=== PATIENT | female | born 1945 | race Caucasian/White ===

== ENCOUNTER 2022-04-25 12:42 | Outpatient (CLI) | payer MEDICAID, SELFPAY ==
[2022-04-25 13:17] LABS: Basophils % 0.5 %; Eosinophils # 0.3 10^3/uL (0.0-0.8); Eosinophils % 4.2 %; Hematocrit 37.4 % (37.0-47.0); Hemoglobin 11.6 g/dL (11.5-15.3); Lymphocytes # 2.3 10^3/uL (0.8-4.8); Lymphocytes % 29.5 %; Mean Corpuscular Hemoglobin 27.4 pg (28.0-34.0); Mean Corpuscular Volume 88.2 fl (81-99); Mean Platelet Volume 11.1 fL (7.4-10.4); Monocytes # 0.6 10^3/uL (0.2-0.9); Monocytes % 7.2 %; Neutrophils # 4.45 10^3/uL (1.8-7.7); Neutrophils % 58.3 %; Nucleated Red Blood Cells % 0 %; Platelet Count 244 10^3/cmm (130-400); Red Blood Count 4.24 10^6/uL (4.1-5.3); Red Cell Distribution Width 14.5 % (12.1-15.1); White Blood Count 7.6 10^3/uL (4.0-10.0)
[2022-04-25 13:36] LABS: Estmated Average Glucose 192; Hemoglobin A1C 8.3 % (4.0-6.0)
[2022-04-25 13:44] LABS: Alanine Aminotransferase 18 U/L (0-33); Albumin Level 4.1 g/dL (3.5-5.2); Alkaline Phosphatase 97 U/L (35-105); Anion Gap 15.8 (5-19); Aspartate Amino Transferase 21 U/L (0-32); Blood Urea Nitrogen 24 mg/dL (8-23); Calcium 9.9 mg/dL (8.5-10.5); Carbon Dioxide 30 mmol/L (22-29); Chloride 98 mmol/L (98-107); Globulin 2.1 g/dL (1.3-4.6); Glucose 122 mg/dL (65-115); Osmolality Calculated 293 mOsm/kg (285-295); Potassium 4.8 mmol/L (3.5-5.1); Sodium 139 mmol/L (136-145); Total Bilirubin 0.3 mg/dL (0.15-1.2); Total Protein 6.2 g/dL (6.6-8.7)
== END 2022-04-25 12:43 | disposition home or self-care (01) ==
LOC: LAB 12:45
PROVIDERS: PCP Family Medicine; Visit Provider Nurse Practitioner Family
DX: E11.22 Type 2 diabetes mellitus with diabetic chronic kidney disease (principal); N18.4 Chronic kidney disease, stage 4 (severe)
CPT/HCPCS: 80053; 83036; 85025

== ENCOUNTER 2022-07-25 13:50 | Outpatient (CLI) | payer MEDICAID, SELFPAY ==
[2022-07-25 14:47] LABS: Basophils # 0.1 10^3/uL (0.0-0.1); Basophils % 0.7 %; Eosinophils # 0.3 10^3/uL (0.0-0.8); Eosinophils % 3.7 %; Hematocrit 35.3 % (37.0-47.0); Hemoglobin 11.1 g/dL (11.5-15.3); Lymphocytes # 1.8 10^3/uL (0.8-4.8); Lymphocytes % 23.8 %; Mean Corpuscular HGB Conc 31.4 g/dL (30.0-36.0); Mean Corpuscular Hemoglobin 27.3 pg (28.0-34.0); Mean Corpuscular Volume 86.9 fl (81-99); Monocytes # 0.5 10^3/uL (0.2-0.9); Monocytes % 7.3 %; Neutrophils # 4.74 10^3/uL (1.8-7.7); Neutrophils % 64.2 %; Nucleated Red Blood Cells % 0 %; Platelet Count 243 10^3/cmm (130-400); Red Blood Count 4.06 10^6/uL (4.1-5.3); Red Cell Distribution Width 14.3 % (12.1-15.1); White Blood Count 7.4 10^3/uL (4.0-10.0)
[2022-07-25 15:13] LABS: Alanine Aminotransferase 31 U/L (0-33); Albumin Level 4.1 g/dL (3.5-5.2); Alkaline Phosphatase 87 U/L (35-105); Anion Gap 17.3 (5-19); Aspartate Amino Transferase 30 U/L (0-32); Blood Urea Nitrogen 24 mg/dL (8-23); Calcium 9.5 mg/dL (8.5-10.5); Carbon Dioxide 25 mmol/L (22-29); Chloride 102 mmol/L (98-107); Globulin 2.2 g/dL (1.3-4.6); Glucose 164 mg/dL (65-115); Osmolality Calculated 298 mOsm/kg (285-295); Potassium 4.3 mmol/L (3.5-5.1); Sodium 140 mmol/L (136-145); Total Bilirubin 0.2 mg/dL (0.15-1.2); Total Protein 6.3 g/dL (6.6-8.7)
[2022-07-25 15:15] LABS: Estmated Average Glucose 212
== END 2022-07-25 13:51 | disposition home or self-care (01) ==
LOC: LAB 13:55
PROVIDERS: PCP Family Medicine; Visit Provider Family Medicine
DX: E11.22 Type 2 diabetes mellitus with diabetic chronic kidney disease (principal); N18.4 Chronic kidney disease, stage 4 (severe)
CPT/HCPCS: 80053; 83036; 85025

== ENCOUNTER 2022-10-24 12:14 | Outpatient (CLI) | payer MEDICAID, SELFPAY ==
[2022-10-24 12:46] LABS: Basophils # 0.1 10^3/uL (0.0-0.1); Basophils % 0.7 %; Eosinophils # 0.2 10^3/uL (0.0-0.8); Eosinophils % 3.2 %; Hematocrit 37.1 % (37.0-47.0); Hemoglobin 11.3 g/dL (11.5-15.3); Lymphocytes # 1.7 10^3/uL (0.8-4.8); Mean Corpuscular HGB Conc 30.5 g/dL (30.0-36.0); Mean Corpuscular Hemoglobin 25.9 pg (28.0-34.0); Mean Corpuscular Volume 85.1 fl (81-99); Mean Platelet Volume 10.9 fL (7.4-10.4); Monocytes # 0.5 10^3/uL (0.2-0.9); Monocytes % 7.5 %; Neutrophils # 4.29 10^3/uL (1.8-7.7); Neutrophils % 63.2 %; Nucleated Red Blood Cells % 0 %; Platelet Count 259 10^3/cmm (130-400); Red Blood Count 4.36 10^6/uL (4.1-5.3); Red Cell Distribution Width 14.6 % (12.1-15.1); White Blood Count 6.8 10^3/uL (4.0-10.0)
[2022-10-24 13:04] LABS: Alanine Aminotransferase 22 U/L (0-33); Albumin Level 3.9 g/dL (3.5-5.2); Alkaline Phosphatase 81 U/L (35-105); Aspartate Amino Transferase 27 U/L (0-32); Blood Urea Nitrogen 20 mg/dL (8-23); Calcium 8.9 mg/dL (8.5-10.5); Carbon Dioxide 23 mmol/L (22-29); Chloride 98 mmol/L (98-107); Glucose 271 mg/dL (65-115); Osmolality Calculated 292 mOsm/kg (285-295); Sodium 135 mmol/L (136-145); Total Bilirubin 0.3 mg/dL (0.15-1.2); Total Protein 5.9 g/dL (6.6-8.7)
[2022-10-24 13:09] LABS: Anion Gap 19.4 (5-19); Potassium 5.4 mmol/L (3.5-5.1)
[2022-10-24 13:44] LABS: Estmated Average Glucose 266; Hemoglobin A1C 10.9 % (4.0-6.0)
== END 2022-10-24 12:15 | disposition home or self-care (01) ==
LOC: LAB 12:15
PROVIDERS: PCP Family Medicine; Visit Provider Family Medicine
DX: E11.22 Type 2 diabetes mellitus with diabetic chronic kidney disease (principal); N18.4 Chronic kidney disease, stage 4 (severe); I50.22 Chronic systolic (congestive) heart failure
CPT/HCPCS: 80053; 83036; 85025

== ENCOUNTER 2023-11-28 06:22 | Emergency (ER) | payer MEDICARE, MEDICAID, SELFPAY ==
[2023-11-28] VITALS (8 sets, daily range): BP systolic 115–195; BP diastolic 64–95; PULSE 72–83; RESP 18; TEMP 37.1; O2SAT 97–99; BMI 35.4
--- NOTE | 2023-11-28 06:27 | XRR_ITS ---
PROCEDURE INFORMATION: Exam: XR Chest Exam date and time: 11/28/2023 7:14 AM Age: 78 years old Clinical indication: Cough and dyspnea; Additional info: Dyspnea/cough TECHNIQUE: Imaging protocol: Radiologic exam of the chest. Views: 1 view. COMPARISON: CR XR chest 1V [id number] 11/13/2018 9:54 PM FINDINGS: Lungs: Unremarkable. No consolidation. Pleural spaces: Unremarkable. No pleural effusion. No pneumothorax. Heart/Mediastinum: Unremarkable. No cardiomegaly. Bones/joints: Unremarkable. XR/XR chest 1V portable [id number] IMPRESSION: No acute findings.
--- NOTE | 2023-11-28 06:33 | ECG_ITS ---
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 Measurements Intervals [place] Rate: 76 P: 0 [place]: 0 QRS: 23 QRSD: 76 T: 49 QT: 377 QTc: 424 Interpretive Statements ATRIAL FIBRILLATION NONSPECIFIC ST & T-WAVE ABNORMALITY Compared to ECG 01/21/2019 23:27:13 T-wave abnormality now present Sinus rhythm no longer present Electronically Signed On 11-28-2023 17:02:13 CDT by Denver Saldana M.D. [id number]
--- NOTE | 2023-11-28 06:35 | W.ED.WEAKNES ---
HPI - Weakness General: Chief complaint: Weakness Stated complaint: Gen Weakness/ UTI Time Seen by Provider: 11/28/23 06:23 Source: patient and EMS Mode of arrival: EMS History of Present Illness: 78-year-old female presents to the emergency room via EMS. She has had multiple falls in her home over the last few days they have called out for the ambulance ambulance as a sister to get back up but she is refused to be seen they brought her in today. 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 She denied any pain however in the course of examination she does not have pain at the right knee with some bruising small bruise at that area left ankle pain and thoracic and lumbar pain on palpation. She is aware of where she is at and what is going on. She denies fever sweats chills she was seen yesterday evidently on a home visit by nurse practitioner and started on Macrobid for a UTI. Uncertain whether or not a urine sample was collected. Patient does state that with the previous stroke several years ago she was briefly [facility] the [facility]. MD Complaint: generalized weakness Onset (ago): unknown Location: generalized Associated symptoms: Denies chest pain, chills, confusion, melena, decreased appetite, diaphoresis, dysuria, easy bruising, fever(s), headache(s), myalgias, nausea, rash, short of breath, syncope or vomiting Review of Systems Const: Denies: fever(s), chills or diaphoresis Card: Denies: chest pain or syncope Resp: Denies: dyspnea GI: Denies: abdominal pain, nausea, vomiting or melena : Denies: dysuria, urinary frequency or urinary urgency Musc: Denies: neck pain or back pain Skin/Breast: Denies: rash Neuro: Denies: headache(s) or confusion Demar/Lymph: Denies: easy bruising Physical Exam Const: COMMON NORMALS: no acute distress GENERAL APPEARANCE: cooperative and comfortable ORIENTATION/CONSCIOUSNESS: Yes awake, Yes oriented to person, Yes oriented to place and Yes oriented to time HENMT: COMMON NORMALS: normocephalic, atraumatic and hearing grossly normal bilaterally HEAD & SCALP: normocephalic and atraumatic Resp: COMMON NORMALS: normal respiratory effort, No retractions, No use of accessory muscles and clear to auscultation bilaterally AUSCULTATION: clear to auscultation bilaterally Cardio: COMMON NORMALS: regular rate, regular rhythm and No murmurs present (Cardio) RATE: regular rate RHYTHM: regular rhythm GI: COMMON NORMALS: Soft to palpation and No hepatosplenomegaly present AUSCULTATION: Yes normoactive bowel sounds PALPATION: Yes Soft to palpation, No Tenderness to palpation present (GI), No Guarding due to palpation present (GI) and Yes No hepatosplenomegaly present Extremity: COMMON NORMALS: normal to inspection, capillary refill normal, no clubbing, cyanosis or edema, no calf tenderness and no pedal edema Neuro: SENSORIUM/ORIENTATION: Yes oriented to person, Yes oriented to place and Yes oriented to time Skin: COMMON NORMALS: no rashes or lesions noted GENERAL SKIN EXAM: no rashes or lesions noted Course Vital Signs: Vital signs: Vital Signs Temperature 98.7 F 11/28/23 06:23 Pulse Rate 78 11/28/23 08:30 Respiratory Rate 18 11/28/23 06:23 Blood Pressure 162/92 11/28/23 08:30 Pulse Oximetry 98 11/28/23 08:30 Oxygen Delivery Me thod Room Air 11/28/23 08:30 MDM - Weakness Medical Decision Making Evaluation in the emergency room did not show any acute diagnosis. Patient is profoundly weak we had staff try to stand her up and ambulate she could barely stand with the assist of 2 ambulation was not even a viable option. There is no acute focal neurologic deficits. No UTI normal white count other labs did not show any clinically significant acute conditions. Reviewed with case management as well as hospitalist Dr. Gale. We are able to get the patient admitted directly to the [facility] at [place]. Transportation arrangements being made. Medical Records I reviewed the patient's medical records. Lab Data I reviewed the patient's lab results. 11/28/23 06:30 11/28/23 06:30 Radiology Impressions Chest X-Ray 11/28/23 06:27 IMPRESSION: No acute findings. Head CT 11/28/23 06:37 IMPRESSION: There are no acute intracranial findings. Ankle X-Ray 11/28/23 06:47 IMPRESSION: No acute osseous findings. Knee X-Ray 11/28/23 06:47 IMPRESSION: No acute osseous findings. Lumbar Spine CT 11/28/23 06:47 IMPRESSION: There are no acute osseous findings. Pelvis X-Ray 11/28/23 06:47 IMPRESSION: No acute findings. Thoracic Spine CT 11/28/23 06:47 IMPRESSION: Unremarkable CT Spine. Laboratory Results WBC 6.60 10^3/uL (3.29-11.43) 11/28/23 06:30 RBC 4.92 10^6/uL (3.85-5.65) 11/28/23 06:30 Hgb 11.70 g/dL (11.27-16.99) 11/28/23 06:30 Hct 39.7 % (36-47) 11/28/23 06:30 MCV 80.7 fl (85-98) L 11/28/23 06:30 MCH 23.8 pg (27-33) L 11/28/23 06:30 MCHC 29.5 g/dL (30-55) L 11/28/23 06:30 RDW 18.8 % (12.1-15.1) H 11/28/23 06:30 Plt Count 243 10^3/cmm (157-399) 11/28/23 06:30 MPV 9.7 fL (7.4-10.4) 11/28/23 06:30 Neut % (Auto) 62.7 % 11/28/23 06:30 Lymph % (Auto) 26.7 % 11/28/23 06:30 [place] % (Auto) 6.2 % 11/28/23 06:30 Eos % (Auto) 3.3 % 11/28/23 06:30 Baso % (Auto) 0.6 % 11/28/23 06:30 Neut # (Auto) 4.14 10^3/uL (1.8-7.7) 11/28/23 06:30 Lymph # (Auto) 1.8 10^3/uL (0.8-4.8) 11/28/23 06:30 [place] # (Auto) 0.4 10^3/uL (0.2-0.9) 11/28/23 06:30 Eos # (Auto) 0.2 10^3/uL (0.0-0.8) 11/28/23 06:30 Baso # (Auto) 0.0 10^3/uL (0.0-0.1) 11/28/23 06:30 Nucleated RBC % (auto) 0 % 11/28/23 06:30 Nucleated RBCs # 0.0 /100WBC 11/28/23 06:30 Sodium 138 mmol/L (136-145) 11/28/23 06:30 Potassium 4.3 mmol/L (3.5-5.1) 11/28/23 06:30 Chloride 100 mmol/L (98-107) 11/28/23 06:30 Carbon Dioxide 24 mmol/L (22-29) 11/28/23 06:30 Anion Gap 18.3 (5-19) 11/28/23 06:30 BUN 21 mg/dL (8-23) 11/28/23 06:30 Creatinine 1.3 mg/dL (0.5-0.9) H 11/28/23 06:30 GFR Calculation Not Reportable 11/28/23 06:30 Glucose 113 mg/dL (65-115) 11/28/23 06:30 Calculated Osmolality 290 mOsm/kg (285-295) 11/28/23 06:30 Calcium 9.0 mg/dL (8.5-10.5) 11/28/23 06:30 Total Bilirubin 0.3 mg/dL (0.15-1.2) 11/28/23 06:30 AST 44 U/L (0-32) H 11/28/23 06:30 ALT 19 U/L (0-33) 11/28/23 06:30 Alkaline Phosphatase 60 U/L (35-105) 11/28/23 06:30 Total Protein 6.6 g/dL (6.6-8.7) 11/28/23 06:30 Albumin 4.1 g/dL (3.5-5.2) 11/28/23 06:30 Globulin 2.5 g/dL (1.3-4.6) 11/28/23 06:30 TSH 13.50 uIU/mL (0.27-4.20) H 11/28/23 06:30 Urine Color Yellow (Yellow) 11/28/23 07:23 Urine Appearance Clear (CLEAR) 11/28/23 07:23 Urine pH 5 (5-7) 11/28/23 07:23 Ur Specific [place] 1.015 (1.005-1.030) 04/12/24 07:23 Urine Protein Neg (Negative) 11/28/23 07:23 Urine Glucose (UA) 4+ (Normal) H 11/28/23 07:23 Urine Ketones Negative (Negative) 11/28/23 07:23 Urine Blood 3+ (Negative) H 11/28/23 07:23 Urine Nitrate Negative (Negative) 11/28/23 07:23 Urine Bilirubin Neg (Negative) 11/28/23 07:23 Urine Urobilinogen Norm mg/dL (Negative) 11/28/23 07:23 Ur Leukocyte Esterase Negative (Negative) 11/28/23 07:23 Urine RBC Rare /hpf (0-2) 11/28/23 07:23 Urine WBC None /hpf (0-5) 11/28/23 07:23 Ur Squamous Epith Cells Rare /hpf (0-5) 11/28/23 07:23 Amorphous Sediment Not Reportable 11/28/23 07:23 Urine Bacteria None /hpf (NONE) 11/28/23 07:23 All radiology interpretation(s) finalized by discharge Discharge Plan Discharge Patient Disposition: Home Clinical Impression: Weakness generalized, Hypothyroidism, Atrial fibrillation Condition: Stable Prescriptions: No Action atorvastatin 40 mg tablet 40 mg PO DAILY potassium chloride 10 mEq capsule, extended release 10 meq PO DAILY pantoprazole 20 mg tablet,delayed release (DR/EC) 20 mg PO BID isosorbide dinitrate 20 mg tablet 20 mg PO TID levothyroxine 125 mcg tablet 152 mcg PO DAILY furosemide 20 mg tablet 10 - 20 mg PO DAILY sertraline 50 mg tablet 50 mg PO DAILY nitrofurantoin monohyd/m-cryst 100 mg capsule 100 mg PO BID Eliquis 5 mg tablet 5 mg PO BID Farxiga 10 mg tablet 10 mg PO QAM metformin 1,000 mg tablet 1,000 mg PO BID Senokot 8.6 mg Tablet 8.6 mg PO DAILY Calcium + D 600 mg-5 mcg (200 unit) Tablet 1 tab PO DAILY Aspir-81 81 mg Tablet,Delayed Release (Dr/Ec) 81 mg PO DAILY folic acid 1 mg Tablet 1 mg PO DAILY Discharge Orders: Discharge ED (Routine); Ordered 11/28/23 Ordered By: Reinier Tai Referrals: Stephanie Yang DO [Primary Care Provider] - Discharge Diet: Usual diet Discharge Activity: Increase activity as tolerated Patient Instructions: Opioid Safety, Pain Management Activity Restrictions/Additional Instructions: Thank you for choosing [facility] for your healthcare needs today. Please realize this is an emergency room and that we are providing you with a medical screening exam and this may not be complete and all inclusive of all the testing and or work up that you may need to determine your ailment or severity of your illness. It is very important that you follow up as instructed or that you return to the Emergency Department should you have concerns or if your condition changes or worsens in any way. You are seen today for generalized weakness. There is no acute emergent diagnosis found on evaluation in the emergency room no sign of UTI or other infection. [facility] are [facility]. Coding Level of Care Code ED Thread Dresser for Gris Burton
[2023-11-28 06:36] LABS: Basophils % 0.6 %; Eosinophils # 0.2 10^3/uL (0.0-0.8); Eosinophils % 3.3 %; Hematocrit 39.7 % (36-47); Lymphocytes # 1.8 10^3/uL (0.8-4.8); Lymphocytes % 26.7 %; Mean Corpuscular HGB Conc 29.5 g/dL (30-55); Mean Corpuscular Hemoglobin 23.8 pg (27-33); Mean Corpuscular Volume 80.7 fl (85-98); Mean Platelet Volume 9.7 fL (7.4-10.4); Monocytes # 0.4 10^3/uL (0.2-0.9); Monocytes % 6.2 %; Neutrophils # 4.14 10^3/uL (1.8-7.7); Neutrophils % 62.7 %; Nucleated Red Blood Cells % 0 %; Platelet Count 243 10^3/cmm (157-399); Red Blood Count 4.92 10^6/uL (3.85-5.65); Red Cell Distribution Width 18.8 % (12.1-15.1)
--- NOTE | 2023-11-28 06:37 | CTR_ITS ---
PROCEDURE INFORMATION: Exam: CT Head Without Contrast Exam date and time: 11/28/2023 6:54 AM Age: 78 years old Clinical indication: Injury or trauma; Fall; Blunt trauma (contusions or hematomas); Consciousness not specified; Additional info: Fall, pain, weakness right leg, history of CVA TECHNIQUE: Imaging protocol: Computed tomography of the head without contrast. Radiation optimization: All CT scans at this facility use at least one of these dose optimization techniques: automated exposure control; mA and/or kV adjustment per patient size (includes targeted exams where dose is matched to clinical indication); or iterative reconstruction. COMPARISON: CTA Head/Neck [id number] 01/21/2019 10:21 PM RADIATION DOSE METRICS: Total DLP (mGy-cm): 1093.88 FINDINGS: Brain: There is moderate diffuse cerebral atrophy. Patchy areas of hypoattenuation seen in the deep white cerebral hemispheres deep microvascular. Focal hypoattenuation is seen in the basal ganglia the left compatible with a chronic lacunar infarction. Cerebral ventricles: No ventriculomegaly. Paranasal sinuses: Visualized sinuses are unremarkable. No fluid levels. Mastoid air cells: Visualized mastoid air cells are well aerated. Bones/joints: Unremarkable. No acute fracture. Soft tissues: Unremarkable. CT/CT head wo con* [id number] IMPRESSION: There are no acute intracranial findings.
--- NOTE | 2023-11-28 06:47 | XRR_ITS ---
PROCEDURE INFORMATION: Exam: XR Right Knee Exam date and time: 11/28/2023 7:08 AM Age: 78 years old Clinical indication: Injury or trauma; Fall; Blunt trauma; Knee; Right; Additional info: Pain TECHNIQUE: Imaging protocol: Radiologic exam of the right knee. Views: 3 views. COMPARISON: No relevant prior studies available. FINDINGS: Bones/joints: Diffuse demineralization. Otherwise normal Soft tissues: Small anterior joint effusion. XR/XR knee RT 3V* [id number] IMPRESSION: No acute osseous findings.
--- NOTE | 2023-11-28 06:47 | CTR_ITS ---
PROCEDURE INFORMATION: Exam: CT Thoracic Spine Without Contrast Exam date and time: 11/28/2023 6:57 AM Age: 78 years old Clinical indication: Injury or trauma; Fall; Blunt trauma (contusions or hematomas); Additional info: Pain/fall TECHNIQUE: Imaging protocol: Computed tomography of the thoracic spine without contrast. Radiation optimization: All CT scans at this facility use at least one of these dose optimization techniques: automated exposure control; mA and/or kV adjustment per patient size (includes targeted exams where dose is matched to clinical indication); or iterative reconstruction. COMPARISON: CT lumbar spine wo con* [id number] 11/28/2023 6:57 AM RADIATION DOSE METRICS: Total DLP (mGy-cm): 943.8 FINDINGS: Bones/joints: No acute fracture. Normal alignment. No significant disc bulge or herniation. No severe spinal canal stenosis. No significant neural foraminal narrowing. Bridging osteophytes extend T4-T12 on the right . Soft tissues: Unremarkable. CT/CT thoracic spin wo con* [id number] IMPRESSION: Unremarkable CT Spine.
--- NOTE | 2023-11-28 06:47 | XRR_ITS ---
PROCEDURE INFORMATION: Exam: XR Left Ankle Exam date and time: 11/28/2023 7:05 AM Age: 78 years old Clinical indication: Injury or trauma; Fall; Blunt trauma; Ankle; Left; Additional info: Pain TECHNIQUE: Imaging protocol: Radiologic exam of the left ankle. Views: 3 or more views. COMPARISON: No relevant prior studies available. FINDINGS: Bones/joints: Diffuse demineralization. Otherwise normal. Soft tissues: Normal. XR/XR ankle LT min 3V* [id number] IMPRESSION: No acute osseous findings.
--- NOTE | 2023-11-28 06:47 | XRR_ITS ---
PROCEDURE INFORMATION: Exam: XR Pelvis Exam date and time: 11/28/2023 7:13 AM Age: 78 years old Clinical indication: Injury or trauma; Fall; Blunt trauma (contusions or hematomas); Bilateral; Hip and pelvic region; Additional info: Fall/pain TECHNIQUE: Imaging protocol: Radiologic exam of the pelvis. Views: 1 or 2 view. COMPARISON: CT lumbar spine wo con* [id number] 11/28/2023 6:57 AM FINDINGS: Bones/joints: Unremarkable. No acute fracture. Soft tissues: Unremarkable. XR/XR pelvis 1-2V* [id number] IMPRESSION: No acute findings.
--- NOTE | 2023-11-28 06:47 | CTR_ITS ---
PROCEDURE INFORMATION: Exam: CT Lumbar Spine Without Contrast Exam date and time: 11/28/2023 6:57 AM Age: 78 years old Clinical indication: Injury or trauma; Fall; Blunt trauma (contusions or hematomas); Additional info: Pain/fall TECHNIQUE: Imaging protocol: Computed tomography of the lumbar spine without contrast. Radiation optimization: All CT scans at this facility use at least one of these dose optimization techniques: automated exposure control; mA and/or kV adjustment per patient size (includes targeted exams where dose is matched to clinical indication); or iterative reconstruction. COMPARISON: CT thoracic spin wo con* [id number] 11/28/2023 6:57 AM RADIATION DOSE METRICS: Total DLP (mGy-cm): 966.7 FINDINGS: Bones/joints: Sclerosis, joint space narrowing bone spurring is seen within the facets of lumbar spine compatible with diffuse osteoarthritic changes. There is synostosis of the L4-L5 facets. Vasculature: An inferior vena caval filter is present extending to the L2-L3 level. Soft tissues: Unremarkable. CT/CT lumbar spine wo con* [id number] IMPRESSION: There are no acute osseous findings.
[2023-11-28 07:00] LABS: Alanine Aminotransferase 19 U/L (0-33); Albumin Level 4.1 g/dL (3.5-5.2); Alkaline Phosphatase 60 U/L (35-105); Anion Gap 18.3 (5-19); Aspartate Amino Transferase 44 U/L (0-32); Blood Urea Nitrogen 21 mg/dL (8-23); Carbon Dioxide 24 mmol/L (22-29); Chloride 100 mmol/L (98-107); Creatinine Clr Calc Pharmacy 39.3628; Globulin 2.5 g/dL (1.3-4.6); Glucose 113 mg/dL (65-115); Osmolality Calculated 290 mOsm/kg (285-295); Potassium 4.3 mmol/L (3.5-5.1); Sodium 138 mmol/L (136-145); Total Bilirubin 0.3 mg/dL (0.15-1.2); Total Protein 6.6 g/dL (6.6-8.7)
--- NOTE | 2023-11-28 07:22 | PC.PHAR ---
PT USES [facility] TO SET UP MEDICATIONS IN HER HOME. WILL CALL FOR MED LIST AT 8AM WHEN THEY OPEN. [phone]
[2023-11-28 07:38] LABS: Urine Appearance Clear (CLEAR); Urine Color Yellow (Yellow); pH Urine 5 (5-7)
[2023-11-28 07:39] LABS: Add Urine Microscopic? YES; Bilirubin Urine Neg (Negative); Blood Urine 3+ (Negative); Glucose Urine UA 4+ (Normal); Ketones Urine Negative (Negative); Leukocyte Esterase Urine Negative (Negative); Nitrate Urine Negative (Negative); Protein Urine Neg (Negative); Specific Gravity, Urine 1.015 (1.005-1.030); Urobilinogen Urine Norm (Negative)
[2023-11-28 07:43] LABS: Add Urine Culture? No; RBC Urine RARE /hpf (0-2); Squamous Epithelial Cell Urine RARE /hpf (0-5)
--- NOTE | 2023-11-28 08:25 | PC.PHAR ---
Addendum entered by Mulu Kumar 11/28/23 09:03: CONTACTED [facility]-PT IS THEIR CLIENT. MED LIST HAS INCORRECT INFORMATION: ELIQUIS IS 5 MG TWICE DAILY (NOT 2.5MG), METFORMIN IS 1,000 MG TWICE DAILY (NOT ER) PER PHARMACY. PT STATES SHE TOOK MEDICATIONS YESTERDAY BUT NOT TODAY. 11/28/23 Original Note: PT USES [facility] FOR MEDICATION SET UP WEEKLY. [phone]. FAXING MED LIST 8:25 AM 11/28/23
--- NOTE | 2023-11-28 09:42 | PC.SOCIAL ---
CM consulted for SNF placement Spoke with patient at bedside, she said she wants to go to [facility]. Called and spoke with patient's who is also in agreeance to [facility]. He states that he can't take care of patient at home right now, he needs for her to go to rehab for at least a few months and then maybe can come home. Referral faxed to [facility]. Audrey states that they will work on auth there and accept her on medicaid for now. She states that she will speak with patient's about any financials that they may incur, she is familiar with family as patient has been there before. Updated patient's who verbalized understanding. Updated PANFILO Platt that patient has been accepted and needs a MTM ride set up for discharge to [facility].
--- NOTE | 2023-11-28 10:05 | PC.NURSE ---
PT DAUGHTER AND NOTIFIED OF PT BEING TRANSFERRED TO [facility].
--- NOTE | 2023-11-28 10:44 | PC.NURSE ---
MEDICAID RIDE FORM GIVEN TO [employer]ICLE [employer]INTER STAFF. PT WAITING ON RIDE VIA EMS TO [facility].
== END 2023-11-28 14:24 | disposition home or self-care (01) ==
PROVIDERS: Emergency Provider Family Medicine; PCP Family Medicine
DX: R53.1 Weakness (principal); E03.9 Hypothyroidism, unspecified; I48.91 Unspecified atrial fibrillation; Z79.01 Long term (current) use of anticoagulants; Z79.82 Long term (current) use of aspirin; Z79.84 Long term (current) use of oral hypoglycemic drugs
CPT/HCPCS: 70450; 71045; 72128; 72131; 72170; 73562; 73610; 80053; 81001; 84443; 85025; 93005; 99285

== ENCOUNTER 2024-04-03 19:20 | Emergency (ER) | payer MEDICARE, MEDICAID, SELFPAY ==
[2024-04-03 19:22] VITALS: BP 194/84; PULSE 55; RESP 16; TEMP 37.2; O2SAT 100; BMI 28.0
--- NOTE | 2024-04-03 19:32 | XRR_ITS ---
PROCEDURE INFORMATION: Exam: XR Chest Exam date and time: 04/03/2024 7:52 PM Age: 78 years old Clinical indication: Chest pressure; Prior surgery; Surgery date: 6+ months; Surgery type: Cabg; Patient HX: C/O chest pain; Additional info: Cp TECHNIQUE: Imaging protocol: Radiologic exam of the chest. Views: 1 view. COMPARISON: CR XR chest 1V portable [id number] 11/28/2023 7:14 AM FINDINGS: Lungs: No focal consolidation. Pleural spaces: No evidence of pneumothorax. No evidence of pleural effusion. 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 Cardiomediastinal silhouette is otherwise within normal limits. Bones/joints: No evidence of acute osseous abnormality. XR/XR chest 1V portable [id number] IMPRESSION: 1. No acute cardiopulmonary abnormality.
--- NOTE | 2024-04-03 19:34 | ECG_ITS ---
[facility] Test Date: 2024-04-03 Pat Name: Emma Kraus Department: Room: Gender: Female Redipper: : 1945 Requested By: Olaf Khan Order Number: [id number] Reading MD: BLESSING DELCID Measurements Intervals [place] Rate: 64 P: 0 PA: 0 QRS: 13 QRSD: 89 T: 43 QT: 460 QTc: 477 Interpretive Statements Sinus rythm with PAC Compared to ECG 11/28/2023 06:33:45 Ventricular premature complex(es) now present Aberrant conduction of supraventricular beat(s) now present T-wave abnormality no longer present Electronically Signed On 04-03-2024 20:27:06 CDT by BLESSING DELCID [id number]
[2024-04-03 19:51] LABS: Charge for UA Resulting for Rev
[2024-04-03 19:52] LABS: Basophils # 0.1 10^3/uL (0.0-0.1); Basophils % 0.6 %; Eosinophils # 0.3 10^3/uL (0.0-0.8); Eosinophils % 3.8 %; Hematocrit 30.2 % (36-47); Lymphocytes # 2.5 10^3/uL (0.8-4.8); Lymphocytes % 32.1 %; Mean Corpuscular HGB Conc 31.1 g/dL (30-55); Mean Corpuscular Hemoglobin 27.1 pg (27-33); Mean Platelet Volume 11.1 fL (7.4-10.4); Monocytes # 0.7 10^3/uL (0.2-0.9); Monocytes % 8.3 %; Neutrophils # 4.26 10^3/uL (1.8-7.7); Neutrophils % 54.7 %; Nucleated Red Blood Cells % 0 %; Platelet Count 245 10^3/cmm (157-399); Red Blood Count 3.47 10^6/uL (3.85-5.65); Red Cell Distribution Width 15.7 % (12.1-15.1)
[2024-04-03 19:53] LABS: Bilirubin Urine Negative (Negative); Blood Urine Negative (Negative); Glucose Urine UA Negative (Normal); Ketones Urine Negative (Negative); Leukocyte Esterase Urine 1+ (Negative); Nitrate Urine Negative (Negative); Protein Urine Negative (Negative); Specific Gravity, Urine 1.006 (1.005-1.030); Urine Appearance Clear (CLEAR); Urine Color Yellow (Yellow); Urobilinogen Urine 0.2 mg/dL (Negative); pH Urine 5.5 (5-7)
[2024-04-03 19:55] LABS: Bacteria Urine None Seen /hpf; Hyaline Casts Urine 5.36 /lpf; RBC Urine 0-2 /hpf (0-2); Squamous Epithelial Cell Urine 0-5 /hpf (0-5)
[2024-04-03 20:01] LABS: INR 1.09 (0.8-1.2); Partial Thromboplastin Time 31.8 SECONDS (23.9-36.7)
[2024-04-03 20:06] LABS: UA Slide Review UA Slide Review Perf
[2024-04-03 20:06] LABS: Troponin(5th) Baseline 34 ng/L (0-10)
[2024-04-03 20:07] LABS: Anion Gap 18.3 (5-19); Blood Urea Nitrogen 17 mg/dL (8-23); Calcium 8.2 mg/dL (8.5-10.5); Carbon Dioxide 22 mmol/L (22-29); Chloride 100 mmol/L (98-107); Creatinine Clr Calc Pharmacy 41.2858; Glucose 105 mg/dL (65-115); Osmolality Calculated 284 mOsm/kg (285-295); Potassium 4.3 mmol/L (3.5-5.1); Sodium 136 mmol/L (136-145)
--- NOTE | 2024-04-03 20:22 | PC.NURSE ---
Patient's bedding was soiled with urine; patient was cleaned, placed in fresh brief and on clean dry bedding and given call light.
[2024-04-03 20:28] LABS: NT Pro B Type Natriuretic Pept 3928 pg/mL (0-450)
--- NOTE | 2024-04-03 20:30 | W.ED.CHESTPA ---
HPI - Chest Pain General: Chief Complaint: Chest Pain Stated Complaint: Chest Pain Time Seen by Provider: 04/03/24 19:21 History of Present Illness: 78-year-old female with a history of coronary disease and atrial fibrillation. She presents with chest discomfort. She says she was at home, at rest when it started. She says it is nearly gone now. She has not been short of breath. No feet swelling. No fever. Minimal cough. She says she has a history of congestive heart failure as well. Related Data Home Medications Medication Instructions Recorded Confirmed apixaban 5 mg tablet (Eliquis) 5 mg PO BID 11/28/23 11/28/23 aspirin 81 mg tablet,delayed 81 mg PO DAILY 11/28/23 11/28/23 release atorvastatin 40 mg tablet 40 mg PO DAILY 11/28/23 11/28/23 calcium carbonate 600 mg-vitamin 1 tab PO DAILY 11/28/23 11/28/23 D3 5 mcg (200 unit) tablet dapagliflozin propanediol 10 mg 10 mg PO QAM 11/28/23 11/28/23 tablet (Farxiga) folic acid 1 mg tablet 1 mg PO DAILY 11/28/23 11/28/23 furosemide 20 mg tablet 10 - 20 mg PO DAILY 11/28/23 11/28/23 isosorbide dinitrate 20 mg tablet 20 mg PO TID 11/28/23 11/28/23 levothyroxine 125 mcg tablet 152 mcg PO DAILY 11/28/23 11/28/23 metformin 1,000 mg tablet 1,000 mg PO BID 11/28/23 11/28/23 nitrofurantoin 100 mg PO BID 11/28/23 11/28/23 monohydrate/macrocrystals 100 mg capsule pantoprazole 20 mg tablet,delayed 20 mg PO BID 11/28/23 11/28/23 release potassium chloride 10 mEq 10 meq PO DAILY 11/28/23 11/28/23 capsule,extended release sennosides 8.6 mg tablet (Senokot) 8.6 mg PO DAILY 11/28/23 11/28/23 sertraline 50 mg tablet 50 mg PO DAILY 11/28/23 11/28/23 Allergies Allergy/AdvReac Type Severity Reaction Status Date / Time heparin Allergy Unknown Verified 11/28/23 06:29 Sulfa (Sulfonamide Allergy Unknown Verified 11/28/23 06:29 Antibiotics) Physical Exam Const: COMMON NORMALS: no acute distress and alert GENERAL APPEARANCE: cooperative and frail appearing; not ill appearing HENMT: COMMON NORMALS: normocephalic, atraumatic and Normal external nose present HEAD & SCALP: normocephalic and atraumatic FACE & SINUS: normal facial exam and face symmetric NOSE: Normal external nose present Eye: COMMON NORMALS: Equal, round and reactive pupils present and EOMs intact bilaterally PUPIL: Yes Equal, round and reactive pupils present Neck/C-Spine: GENERAL: Yes trachea midline Chest: CHEST: Yes Symmetrical chest wall rise Resp: COMMON NORMALS: normal respiratory effort, No retractions, No use of accessory muscles and clear to auscultation bilaterally AUSCULTATION: clear to auscultation bilaterally Cardio: RHYTHM: abnormal rhythm irregularly irregular HEART SOUNDS: Murmur heart sound present GI: COMMON NORMALS: Normal to inspection, nondistended, normoactive bowel sounds present Extremity: COMMON NORMALS: no pedal edema Neuro: SARA COMA SCALE: document GCS findings Sara coma scale eye opening: Spontaneous Sara coma scale verbal response: Orientated [place] coma scale motor response: Obey commands [place] coma scale total score: 15 SENSORIUM/ORIENTATION: Yes alert SENSORY EXAM: Yes extremities (intact) Psych: COMMON NORMALS: speech normal SPEECH: Yes normal speech Skin: COMMON NORMALS: no rashes or lesions noted GENERAL SKIN EXAM: no rashes or lesions noted Course Vital Signs: Vital signs: Vital Signs Temperature 98.9 F 04/03/24 19:22 Pulse Rate 57 L 04/03/24 23:46 Respiratory Rate 16 04/03/24 19:22 Blood Pressure 165/58 04/03/24 23:46 Pulse Oximetry 98 04/03/24 23:46 Oxygen Delivery Me thod Room Air 04/03/24 21:36 MDM - Chest Pain Medical Decision Making 78-year-old female with a history of coronary disease and atrial fibrillation. She presents with chest discomfort. No chest discomfort now. She was initially quite hypertensive. Now blood pressure is improved. She received Nitropaste in the field. She is received 60 mg of IV Lasix here with some diuresis. Her hemoglobin is 9.4. Her creatinine is 1.1. Her troponin is 34 initially, with a delta of essentially 0.2. Chest x-ray is nonacute. She is not requiring oxygen. With improvement in her symptoms, she will be allowed discharge. Close outpatient follow-up. Return for return of pain. Lab Data 04/03/24 19:38 04/03/24 19:38 Radiology Impressions Chest X-Ray 04/03/24 19:32 IMPRESSION: 1. No acute cardiopulmonary abnormality. Laboratory Results WBC 7.80 10^3/uL (3.29-11.43) 04/03/24 19:38 RBC 3.47 10^6/uL (3.85-5.65) L 04/03/24 19:38 Hgb 9.40 g/dL (11.27-16.99) L 04/03/24 19:38 Hct 30.2 % (36-47) L 04/03/24 19:38 MCV 87.0 fl (85-98) 04/03/24 19:38 MCH 27.1 pg (27-33) 04/03/24 19:38 MCHC 31.1 g/dL (30-55) 04/03/24 19:38 RDW 15.7 % (12.1-15.1) H 04/03/24 19:38 Plt Count 245 10^3/cmm (157-399) 04/03/24 19:38 MPV 11.1 fL (7.4-10.4) H 04/03/24 19:38 Neut % (Auto) 54.7 % 04/03/24 19:38 Lymph % (Auto) 32.1 % 04/03/24 19:38 [place] % (Auto) 8.3 % 04/03/24 19:38 Eos % (Auto) 3.8 % 04/03/24 19:38 Baso % (Auto) 0.6 % 04/03/24 19:38 Neut # (Auto) 4.26 10^3/uL (1.8-7.7) 04/03/24 19:38 Lymph # (Auto) 2.5 10^3/uL (0.8-4.8) 04/03/24 19:38 [place] # (Auto) 0.7 10^3/uL (0.2-0.9) 04/03/24 19:38 Eos # (Auto) 0.3 10^3/uL (0.0-0.8) 04/03/24 19:38 Baso # (Auto) 0.1 10^3/uL (0.0-0.1) 04/03/24 19:38 Nucleated RBC % (auto) 0 % 04/03/24 19:38 Nucleated RBCs # 0.0 /100WBC 04/03/24 19:38 PT 14.40 SECONDS (12.1-14.9) 04/03/24 19:38 INR 1.09 (0.8-1.2) 04/03/24 19:38 APTT 31.8 SECONDS (23.9-36.7) 04/03/24 19:38 Sodium 136 mmol/L (136-145) 04/03/24 19:38 Potassium 4.3 mmol/L (3.5-5.1) 04/03/24 19:38 Chloride 100 mmol/L (98-107) 04/03/24 19:38 Carbon Dioxide 22 mmol/L (22-29) 04/03/24 19:38 Anion Gap 18.3 (5-19) 04/03/24 19:38 BUN 17 mg/dL (8-23) 04/03/24 19:38 Creatinine 1.1 mg/dL (0.5-0.9) H 04/03/24 19:38 GFR Calculation Not Reportable 04/03/24 19:38 Glucose 105 mg/dL (65-115) 04/03/24 19:38 Calculated Osmolality 284 mOsm/kg (285-295) L 04/03/24 19:38 Calcium 8.2 mg/dL (8.5-10.5) L 04/03/24 19:38 Troponin T Baseline 34 ng/L (0-10) H 04/03/24 19:38 Troponin T 120 Minute 33.80 ng/L (0-10) H 04/03/24 21:24 Delta Troponin T -0.20 ABS# (0-10) L 04/03/24 21:24 NT-Pro-B Natriuret Pep 3928 pg/mL (0-450) H 04/03/24 19:38 Urine Color Yellow (Yellow) 04/03/24 19:48 Urine Appearance Clear (CLEAR) 04/03/24 19:48 Urine pH 5.5 (5-7) 04/03/24 19:48 Ur Specific [place] 1.006 (1.005-1.030) 04/03/24 19:48 Urine Protein Negative (Negative) 04/03/24 19:48 Urine Glucose (UA) Negative (Normal) 04/03/24 19:48 Urine Ketones Negative (Negative) 04/03/24 19:48 Urine Blood Negative (Negative) 04/03/24 19:48 Urine Nitrate Negative (Negative) 04/03/24 19:48 Urine Bilirubin Negative (Negative) 04/03/24 19:48 Urine Urobilinogen 0.2 mg/dL (Negative) 04/03/24 19:48 Ur Leukocyte Esterase 1+ (Negative) A 04/03/24 19:48 Urine RBC 0-2 /hpf (0-2) 04/03/24 19:48 Urine WBC 6-10 /hpf (0-5) 04/03/24 19:48 Ur Squamous Epith Cells 0-5 /hpf (0-5) 04/03/24 19:48 Amorphous Sediment Not Reportable 04/03/24 19:48 Urine Bacteria None seen /hpf (NONE) 04/03/24 19:48 Hyaline Casts 5.36 /lpf 04/03/24 19:48 All radiology interpretation(s) finalized by discharge Discharge Plan Discharge Patient Disposition: Home Clinical Impression: Chest pain, Atrial fibrillation Condition: Stable Prescriptions: No Action atorvastatin 40 mg tablet 40 mg PO DAILY potassium chloride 10 mEq capsule, extended release 10 meq PO DAILY pantoprazole 20 mg tablet,delayed release (DR/EC) 20 mg PO BID isosorbide dinitrate 20 mg tablet 20 mg PO TID levothyroxine 125 mcg tablet 152 mcg PO DAILY furosemide 20 mg tablet 10 - 20 mg PO DAILY sertraline 50 mg tablet 50 mg PO DAILY nitrofurantoin monohyd/m-cryst 100 mg capsule 100 mg PO BID Eliquis 5 mg tablet 5 mg PO BID Farxiga 10 mg tablet 10 mg PO QAM metformin 1,000 mg tablet 1,000 mg PO BID Senokot 8.6 mg Tablet 8.6 mg PO DAILY Calcium + D 600 mg-5 mcg (200 unit) Tablet 1 tab PO DAILY Aspir-81 81 mg Tablet,Delayed Release (Dr/Ec) 81 mg PO DAILY folic acid 1 mg Tablet 1 mg PO DAILY Discharge Orders: Discharge ED (Routine); Ordered 04/03/24 Ordered By: Olaf Rehman Patient Instructions: A-fib (Atrial Fibrillation) (ED), Chest Pain (ED), Opioid Safety, Pain Management Activity Restrictions/Additional Instructions: Return for return of chest pain, shortness of breath, any other concerning symptoms. Follow-up with your doctor this coming week. 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
[2024-04-03 20:38] VITALS: BP 157/58; PULSE 65; O2SAT 100
[2024-04-03 20:56] VITALS: BP 158/61; PULSE 60; O2SAT 100
[2024-04-03] MEDS: FUROsemide 10 mg/mL SDV 10mL 60 MG IVP (21:33)
[2024-04-03 21:36] VITALS: BP 157/50; PULSE 64; O2SAT 98
--- NOTE | 2024-04-03 21:59 | PC.NURSE ---
Updated daughter Penny on current patient status and that nursing staff is waiting to hear if patient will be admitted or discharge.
--- NOTE | 2024-04-03 22:43 | PC.NURSE ---
Daughter Penny updated on patient's discharge status. Family on the way to transport patient home.
--- NOTE | 2024-04-03 22:44 | PC.NURSE ---
Patient once again cleaned from urinary incontinence episode and placed in fresh, clean depends and on clean sheets.
[2024-04-03 23:46] VITALS: BP 165/58; PULSE 57; O2SAT 98
== END 2024-04-03 23:06 | disposition home or self-care (01) ==
PROVIDERS: Emergency Provider Emergency Medicine
DX: R07.9 Chest pain, unspecified (principal); I48.91 Unspecified atrial fibrillation; Z79.01 Long term (current) use of anticoagulants; Z79.82 Long term (current) use of aspirin; Z79.84 Long term (current) use of oral hypoglycemic drugs
CPT/HCPCS: 71045; 80048; 81003; 81015; 83880; 84484; 85025; 85610; 85730; 93005; 96374; 99285; J1940

== ENCOUNTER 2024-09-10 09:51 | Inpatient (IN) | payer MEDICARE, MEDICAID, SELFPAY ==
[2024-09-10] VITALS (7 sets, daily range): BP systolic 122–202; BP diastolic 65–98; PULSE 57–67; RESP 14–20; TEMP 36.3–36.8; O2SAT 90–96
--- NOTE | 2024-09-10 09:54 | XR_ITS ---
WS: [id number] Portable AP semiupright chest, 09/10/2024 Clinical Data: dyspnea/cough Comparison: Portable chest, 04/03/2024 Findings: There is minimal bilateral lower lobe pulmonary patchy opacity which could represent atelec tasis and/or pneumonia. The heart is at the upper limits of normal. The upper lobes are clear. No nod ules, masses or effusions are seen. Midline sternotomy sutures are present. The aortic arch and desce nding thoracic aorta show tortuosity. Monitor leads are on the chest wall. XR/XR chest 1V portable [id number] Impression: 1. Bilateral patchy lower lobe pulmonary opacities which could represent pneumo alexis and recommend repeat chest x-ray in 2 to 3 days. 2. Atherosclerosis and cardiomegaly.
--- NOTE | 2024-09-10 09:54 | ECG_ITS ---
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 Measurements Intervals [place] Rate: 61 P: 244 HI: 150 QRS: 38 QRSD: 83 T: 71 QT: 445 QTc: 450 Interpretive Statements SINUS RHYTHM MODERATE ST DEPRESSION [0.05+ mV ST DEPRESSION] Compared to ECG 04/03/2024 19:34:42 ST (T wave) deviation now present Atrial premature complex(es) no longer present Electronically Signed On 09-11-2024 23:10:34 INVESTMENT UNDERWRITER by Denver Saldana M.D. [id number]
--- NOTE | 2024-09-10 10:01 | ED_ITS ---
HPI - Weakness 2 General: Chief complaint: Weakness Stated complaint: n/v weakness Time Seen by Provider: 09/10/24 09:54 History of Present Illness: 79-year-old female presents emergency ro om with complaint of nausea vomiting diarrhea and weakness. Difficult to get patient to give much for history. She has a history of strokes in the past. EMS reported glucose was 315 when she initially arrived patient is on 2 L we took her off for a while she has had it okay but then began to desat and required oxygen again at 2 L/min to maintain sats in the low 90s. She does respond to some questions she does complain of shortness of breath and better cough she denies abdominal or chest pain. Associated symptoms: Denies chest pain, chills, dysuria or fever(s) Review of Systems 2 Const: Denies: fever(s) or chills Card: Denies: chest pain Resp: Reports: dyspnea, non-productive cough and chest congestion GI: Denies: abdominal pain : Denies: dysuria, urinary frequency or urinary urgency Musc: Denies: neck pain or back pain Skin/Breast: Denies: rash Physical Exam 2 Const: GENERAL APPEARANCE: cooperative and comfortable O RIENTATION/CONSCIOUSNESS: Yes awake HENMT: COMMON NORMALS: normocephalic, atraumatic and hearing grossly normal bilaterally HEAD & SCALP: normocephalic and atraumatic Resp: COMMON NORMALS: normal respiratory effort, No retractions and No use of accessory muscles AUSCULTATION: rhonchi, wheezes and diminished lung sounds Cardio: COMMON NORMALS: regular rate, regular rhythm and No murmurs present (Cardio) RATE: regular rate RHYTHM: regular rhythm GI: COMMON NORMALS: Soft to palpation and No hepatosplenomegaly present A USCULTATION: Yes normoactive bowel sounds PALPATION: Yes Soft to palpation, No Tenderness to palpation present (GI), No Guarding due to palpation present (GI) and Yes No hepatosplenomegaly present Extremity: COMMON NORMALS: normal to inspection, capillary refill normal, no clubbing, cyanosis or edema, no calf tenderness and no pedal edema Skin: COMMON NORMALS: no rashes or lesions noted GENERAL SKIN EXAM: no rashes or lesions noted Course 2 Vital Signs: Vital signs: Vital Signs Temperature 98.3 F 09/10/24 09:52 Pulse Rate 67 09/10/24 13:41 Respiratory Rate 20 H 09/10/24 13:41 Blood Pressure 180/82 09/10/24 13:41 Pulse Oximetry 90 09/10/24 13:41 Oxygen Delivery Me thod Nasal Cannula 09/10/24 09:52 Oxygen Flow Rate 2 09/10/24 09:52 MDM - Weakness Medical Decision Making Bilateral lower lobe pneumonia requiring mild oxygen now. She does not have significant leukocytosis. She is somewhat altered. Will admit her for pneumonia. She also has a mild acute kidney injury. Glucose was 232 her anion gap is normal. Medical Records I reviewed the patient's medical records. Lab Data I reviewed the patient's lab results. 09/10/24 10:17 09/10/24 10:17 Radiology Impressions Chest X-Ray 09/10/24 09:54 Impression: 1. Bilateral patchy lower lobe pulmonary opacities which could represent pneumonia and recommend repeat chest x-ray in 2 to 3 days. 2. Atherosclerosis and cardiomegaly. Abdomen/Pelvis CT 09/10/24 11:53 IMPRESSION: 1. No renal obstruction or calcification. 2. Small amount of air in the urinary bladder may be from recent catheterization. 3. Dense consolidation consistent with pneumonia LEFT lower lobe. 4. Additional more scattered subsegmental consolidations in the RIGHT middle lobe and RIGHT lower lobe consistent with pneumonia. 5. Prior cholecystectomy. 6. No ascites or adenopathy. Laboratory Results WBC 6.13 10^3/uL (3.29-11.43) 09/10/24 10:17 RBC 4.65 10^6/uL (3.85-5.65) 09/10/24 10:17 Hgb 11.30 g/dL (11.27-16.99) 09/10/24 10:17 Hct 38.7 % (36-47) 09/10/24 10:17 MCV 83.2 fl (85-98) L 09/10/24 10:17 MCH 24.3 pg (27-33) L 09/10/24 10:17 MCHC 29.2 g/dL (30-55) L 09/10/24 10:17 RDW 15.6 % (12.1-15.1) H 09/10/24 10:17 Plt Count 191 10^3/cmm (157-399) 09/10/24 10:17 MPV 9.8 fL (7.4-10.4) 09/10/24 10:17 Neut % (Auto) 90.5 % 09/10/24 10:17 Lymph % (Auto) 5.2 % 09/10/24 10:17 [place] % (Auto) 3.6 % 09/10/24 10:17 Eos % (Auto) 0.2 % 09/10/24 10:17 Baso % (Auto) 0.2 % 09/10/24 10:17 Neut # (Auto) 5.55 10^3/uL (1.8-7.7) 09/10/24 10:17 Lymph # (Auto) 0.3 10^3/uL (0.8-4.8) L 09/10/24 10:17 [place] # (Auto) 0.2 10^3/uL (0.2-0.9) 09/10/24 10:17 Eos # (Auto) 0.0 10^3/uL (0.0-0.8) 09/10/24 10:17 Baso # (Auto) 0.0 10^3/uL (0.0-0.1) 09/10/24 10:17 Nucleated RBC % (auto) 0 % 09/10/24 10:17 Nucleated RBCs # 0.0 /100WBC 09/10/24 10:17 Sodium 140 mmol/L (136-145) 09/10/24 10:17 Potassium 4.3 mmol/L (3.5-5.1) 09/10/24 10:17 Chloride 104 mmol/L (98-107) 09/10/24 10:17 Carbon Dioxide 22 mmol/L (22-29) 09/10/24 10:17 Anion Gap 18.3 (5-19) 09/10/24 10:17 BUN 25 mg/dL (8-23) H 09/10/24 10:17 Creatinine 1.5 mg/dL (0.5-0.9) H 09/10/24 10:17 GFR Calculation Not Reportable 09/10/24 10:17 Glucose 232 mg/dL (65-115) H 09/10/24 10:17 Calculated Osmolality 302 mOsm/kg (285-295) H 09/10/24 10:17 Calcium 9.5 mg/dL (8.5-10.5) 09/10/24 10:17 Total Bilirubin 0.4 mg/dL (0.15-1.2) 09/10/24 10:17 AST 20 U/L (0-32) 09/10/24 10:17 ALT 16 U/L (0-33) 09/10/24 10:17 Alkaline Phosphatase 81 U/L (35-105) 09/10/24 10:17 Total Protein 7.1 g/dL (6.6-8.7) 09/10/24 10:17 Albumin 4.3 g/dL (3.5-5.2) 09/10/24 10:17 Globulin 2.8 g/dL (1.3-4.6) 09/10/24 10:17 Lipase 289 U/L (13-60) H 09/10/24 10:17 Urine Color Yellow (Yellow) 09/10/24 10:35 Urine Appearance Clear (CLEAR) 09/10/24 10:35 Urine pH 5.0 (5-7) 09/10/24 10:35 Ur Specific [place] 1.023 (1.005-1.030) 09/10/24 10:35 Urine Protein 2+ (Negative) A 09/10/24 10:35 Urine Glucose (UA) 3+ (Normal) H 09/10/24 10:35 Urine Ketones Negative (Negative) 09/10/24 10:35 Urine Blood 1+ (Negative) A 09/10/24 10:35 Urine Nitrate Positive (Negative) A 09/10/24 10:35 Urine Bilirubin Negative (Negative) 09/10/24 10:35 Urine Urobilinogen 0.2 mg/dL (Negative) 09/10/24 10:35 Ur Leukocyte Esterase Negative (Negative) 09/10/24 10:35 Urine RBC 0-2 /hpf (0-2) 09/10/24 10:35 Urine WBC 6-10 /hpf (0-5) 09/10/24 10:35 Ur Squamous Epith Cells 0-5 /hpf (0-5) 09/10/24 10:35 Amorphous Sediment Not Reportable 09/10/24 10:35 Urine Bacteria 4+ /hpf (NONE) H 09/10/24 10:35 Hyaline Casts 0-4 /lpf H 09/10/24 10:35 All radiology interpretation(s) finalized by discharge Discharge Plan Discharge Patient Disposition: Admitted As Inpatient Clinical Impression: Pneumonia, Acute kidney injury Condition: Stable Prescriptions: No Action pantoprazole 20 mg tablet,delayed release (DR/EC) 20 mg PO BID isosorbide dinitrate 20 mg tablet 20 mg PO TID furosemide 20 mg tablet 20 mg PO DAILY sertraline 50 mg tablet 50 mg PO DAILY Eliquis 5 mg tablet 5 mg PO BID calcium carbonate-vitamin D3 [Calcium + D] 600 mg-5 mcg (200 unit) Tablet 1 tab PO DAILY aspirin [Aspir-81] 81 mg Tablet,Delayed Release (Dr/Ec) 81 mg PO DAILY folic acid 1 mg Tablet 1 mg PO DAILY levothyroxine 100 mcg tablet 100 mcg PO DAILY Jardiance 25 mg tablet 25 mg PO DAILY Coding Level of Care Code ED Renderer for Chg Fwd Related Data Home Medications Medication Instructions Recorded Confirmed apixaban 5 mg tablet (Eliquis) 5 mg PO BID 11/28/23 09/10/24 aspirin 81 mg tablet,delayed 81 mg PO DAILY 11/28/23 09/10/24 release calcium 600 mg (as 1 tab PO DAILY 11/28/23 09/10/24 carbonate)-vitamin D3 5 mcg (200 unit) tablet folic acid 1 mg tablet 1 mg PO DAILY 11/28/23 09/10/24 furosemide 20 mg tablet 20 mg PO DAILY 11/28/23 09/10/24 isosorbide dinitrate 20 mg tablet 20 mg PO TID 11/28/23 09/10/24 pantoprazole 20 mg tablet,delayed 20 mg PO BID 11/28/23 09/10/24 release sertraline 50 mg tablet 50 mg PO DAILY 11/28/23 09/10/24 empagliflozin 25 mg tablet 25 mg PO DAILY 09/10/24 09/10/24 (Jardiance) levothyroxine 100 mcg tablet 100 mcg PO DAILY 09/10/24 09/10/24 Allergies Allergy/AdvReac Type Severity Reaction Status Date / Time heparin Allergy Unknown Verified 11/28/23 06:29 Sulfa (Sulfonamide Allergy Unknown Verified 11/28/23 06:29 Antibiotics)
[2024-09-10 10:23] LABS: Basophils % 0.2 %; Eosinophils % 0.2 %; Hematocrit 38.7 % (36-47); Lymphocytes # 0.3 10^3/uL (0.8-4.8); Lymphocytes % 5.2 %; Mean Corpuscular HGB Conc 29.2 g/dL (30-55); Mean Corpuscular Hemoglobin 24.3 pg (27-33); Mean Corpuscular Volume 83.2 fl (85-98); Mean Platelet Volume 9.8 fL (7.4-10.4); Monocytes # 0.2 10^3/uL (0.2-0.9); Monocytes % 3.6 %; Neutrophils # 5.55 10^3/uL (1.8-7.7); Neutrophils % 90.5 %; Nucleated Red Blood Cells % 0 %; Platelet Count 191 10^3/cmm (157-399); Red Blood Count 4.65 10^6/uL (3.85-5.65); Red Cell Distribution Width 15.6 % (12.1-15.1); White Blood Count 6.13 10^3/uL (3.29-11.43)
[2024-09-10 10:41] LABS: Alanine Aminotransferase 16 U/L (0-33); Albumin Level 4.3 g/dL (3.5-5.2); Alkaline Phosphatase 81 U/L (35-105); Anion Gap 18.3 (5-19); Aspartate Amino Transferase 20 U/L (0-32); Blood Urea Nitrogen 25 mg/dL (8-23); Calcium 9.5 mg/dL (8.5-10.5); Carbon Dioxide 22 mmol/L (22-29); Chloride 104 mmol/L (98-107); Creatinine Clr Calc Pharmacy 31.4223; Globulin 2.8 g/dL (1.3-4.6); Glucose 232 mg/dL (65-115); Lipase 289 U/L (13-60); Osmolality Calculated 302 mOsm/kg (285-295); Potassium 4.3 mmol/L (3.5-5.1); Sodium 140 mmol/L (136-145); Total Bilirubin 0.4 mg/dL (0.15-1.2); Total Protein 7.1 g/dL (6.6-8.7)
[2024-09-10 10:48] LABS: Bilirubin Urine Negative (Negative); Blood Urine 1+ (Negative); Glucose Urine UA 3+ (Normal); Ketones Urine Negative (Negative); Leukocyte Esterase Urine Negative (Negative); Nitrate Urine Positive (Negative); Protein Urine 2+ (Negative); Specific Gravity, Urine 1.023 (1.005-1.030); Urine Appearance Clear (CLEAR); Urine Color Yellow (Yellow); Urobilinogen Urine 0.2 mg/dL (Negative)
[2024-09-10 10:53] LABS: Add Urine Microscopic? YES; Bacteria Urine 4+ /hpf; Hyaline Casts Urine 0-4 /lpf; RBC Urine 0-2 /hpf (0-2); Squamous Epithelial Cell Urine 0-5 /hpf (0-5)
--- NOTE | 2024-09-10 11:53 | CT_ITS ---
WS: [id number] CT ABDOMEN AND PELVIS NONCONTRAST HISTORY: flank pain, hematuria TECHNIQUE: Imaging performed through the abdomen and pelvis. Coronal and sagittal reformats are submi tted. All CT scans at [facility] use at least one of these dose optimization techniques: auto mated exposure control; mA and/or kV adjustment per patient size (includes targeted exams where dose is matched to clinical indication); or iterative reconstruction. DLP: 833.52 mGy.cm COMPARISON: None available. Lower thorax: Consolidation in a large portion of the LEFT lower lobe consistent with pneumonia. Ther e are additional more subtle scattered opacifications at the LEFT lung base and in the RIGHT middle l obe consistent with pneumonia. Consider aspiration as a possible source. Heart is slightly enlarged. Small pericardial effusion. Liver: Normal size liver. No mass or bile duct dilatation. Gallbladder: Prior cholecystectomy. Pancreas: Mild atrophy. No duct dilatation. Spleen: Normal. Adrenal glands: Normal. No mass. Right kidney: Mild atrophy. No obstruction or calcification. Left kidney: Mild atrophy, no obstruction or calcification. Aorta: Moderate atherosclerotic plaque within the aorta. IVC filter. No free fluid, intraperitoneal air or significant lymphadenopathy. GI tract: Stomach is distended with fluid and air. No small bowel obstruction. No colon obstruction o r colitis. Abdominal wall: Thinning of the anterior abdominal wall. Small ventral abdominal wall hernia contains fat only. Pelvis: Urinary bladder is distended. There is a small amount of air in the urinary bladder which cou ld be related to recent catheterization. Uterus is atrophic. No adenopathy or ascites. Osseous structures: Mild osteopenia. L4 anterolisthesis by [address]/CT kidney stone [id number] IMPRESSION: 1. No renal obstruction or calcification. 2. Small amount of air in the urinary bladder may be from recent catheterizati on. 3. Dense consolidation consistent with pneumonia LEFT lower lobe. 4. Additional more scattered subsegmental consolidations in the RIGHT middle l obe and RIGHT lower lobe consistent with pneumonia. 5. Prior cholecystectomy. 6. No ascites or adenopathy.
[2024-09-10] MEDS: piperacillin-tazobactam 3.375 GM in sodium chloride 0.9% (plus) 50 ML IV ×2 (13:01→20:56)
--- NOTE | 2024-09-10 14:46 | P.HP_ITS ---
Providers/Chief Complaint 2 Chief Complaint: n/v weakness History of Present Illness Emma Kraus is a 79 year old female with a past medical history of anemia, atrial fibrillation, history of CVA, history of chronic right carotid artery occlusion, CAD status post CABG, hypertension, hyperlipidemia, type 2 diabetes mellitus, history of DVT and PE, history of osteoporosis, hypothyroidism who presents [facility] due to nausea, vomiting, fatigue, malaise. Currently patient is alert to person, to place, not to time she follows commands, she reports that she lives at home here [place] with her she has been experiencing nausea vomiting, abdominal pain, no diarrhea, no fevers, does have report chills, reports fatigue, malaise. During my history of taking, it is difficult to get history from her, some of it she does not have her dentures in, also she has to be redirected multiple times, a lot of times she rouses off, or she does not understand my questioning, no facial droop, no slurring of words, no focal weakness I could discern but does have encephalopathy Review of Systems 2 Const: Reports: fatigue and malaise; Denies: fever(s) or chills Card: Denies: chest pain Resp: Denies: dyspnea GI: Reports: abdominal pain, nausea and vomiting : Denies: flank pain Medications/Allergies Home Medications Medication Instructions Recorded Confirmed Last Taken Type apixaban 5 mg tablet (Eliquis) 5 mg PO BID 11/28/23 09/10/24 Unknown History aspirin 81 mg tablet,delayed 81 mg PO DAILY 11/28/23 09/10/24 11/27/23 History release calcium 600 mg (as 1 tab PO DAILY 11/28/23 09/10/24 11/27/23 History carbonate)-vitamin D3 5 mcg (200 unit) tablet folic acid 1 mg tablet 1 mg PO DAILY 11/28/23 09/10/24 11/27/23 History furosemide 20 mg tablet 20 mg PO DAILY 11/28/23 09/10/24 11/27/23 History isosorbide dinitrate 20 mg tablet 20 mg PO TID 11/28/23 09/10/24 11/27/23 History pantoprazole 20 mg tablet,delayed 20 mg PO BID 11/28/23 09/10/24 11/27/23 History release sertraline 50 mg tablet 50 mg PO DAILY 11/28/23 09/10/24 11/27/23 History empagliflozin 25 mg tablet 25 mg PO DAILY 09/10/24 09/10/24 Unknown History (Jardiance) levothyroxine 100 mcg tablet 100 mcg PO DAILY 09/10/24 09/10/24 Unknown History Allergies Allergy/AdvReac Type Severity Reaction Status Date / Time heparin Allergy Unknown Verified 11/28/23 06:29 Sulfa (Sulfonamide Allergy Unknown Verified 11/28/23 06:29 Antibiotics) PFSH Acute 2 PFSH: Medical History (Updated 09/10/24 @ 14:53 by Michele Ibarra MD) History of CAD (coronary artery disease) Hyperlipidemia History of hypertension Stenosis of right carotid artery History of CVA (cerebrovascular accident) History of pulmonary embolism History of DVT (deep vein thrombosis) History of atrial fibrillation History of type 2 diabetes mellitus Surgical History (Updated 09/10/24 @ 14:50 by Michele Ibarra MD) History of cholecystectomy History of coronary artery bypass graft S/P IVC filter Family History Other CAD (coronary artery disease) Diabetes Hyperlipidemia Hypertension Social History (Updated 09/10/24 @ 14:50 by Michele Ibarra MD) Smoking and tobacco/nicotine status: never used tobacco/nicotine Alcohol intake: never Substance/Drug Use: never Vitals/I&O/Wt Last Vital Signs Temp 98.3 F 09/10/24 09:52 Pulse 67 09/10/24 13:41 Resp 20 H 09/10/24 13:41 BP 180/82 09/10/24 13:41 Pulse Ox 90 09/10/24 13:41 O2 Del Method Nasal Cannula 09/10/24 09:52 O2 Flow Rate 2 09/10/24 09:52 Weight last 48 hrs Weight 79.832 kg Physical Exam 2 Const: COMMON NORMALS: no acute distress ORIENTATION/CONSCIOUSNESS: Yes awake, Yes oriented to person and Yes oriented to place; not oriented to time OTHER: Does have intermittent episodes of confusion during my questioning HENMT: COMMON NORMALS: normocephalic HEAD & SCALP: normocephalic Eye: COMMON NORMALS: Equal, round and reactive pupils present Neck/C-Spine: COMMON NORMALS: no JVD Resp: COMMON NORMALS: normal respiratory effort, No retractions and No use of accessory muscles AUSCULTATION: crackles and wheezes Cardio: COMMON NORMALS: no JVD, regular rate, regular rhythm, S1 normal heart sound present and S2 normal heart sound present RATE: regular rate RHYTHM: regular rhythm HEART SOUNDS: S1 normal heart sound present and S2 normal heart sound present GI: OTHER: Abdomen is soft, slightly distended, no guarding, no rebound, rigidity does have epigastric tenderness Extremity: COMMON NORMALS: no pedal edema Neuro: COMMON NORMALS: CN's II-XII intact bilaterally and moves all extremities Psych: COMMON NORMALS: mental status grossly normal Sepsis: Is patient septic: No Focused sepsis exam performed: Yes Focused sepsis exam: DP PT pulses palpable, cap refill greater than 2 seconds, no mottling lower extremity Date exam was performed: 09/10/24 Time exam was performed: 14:51 Data 09/10/24 10:17 09/10/24 10:17 Micro: Microbiology 09/10/24 10:19 Blood Culture - Preliminary Blood SPECIMEN COLLECTED 09/10/24 10:17 Blood Culture - Preliminary Blood SPECIMEN COLLECTED A&P Assessment and plan (1) Acute encephalopathy: (2) Urinary tract infection: (3) Pneumonia: (4) Acute kidney injury: (5) Acute hypoxic respiratory failure: (6) Nausea & vomiting: Plan Acute encephalopathy -Likely UTI, pneumonia -IV antibiotics -Neurochecks, monitor mentation -CT head Urinary tract infection -IV antibiotics, Zosyn Pneumonia -Seen on CT imaging -Aspiration precautions -Speech therapy eval -Vancomycin, Zosyn -Monitor respiratory status closely Acute epoxy respiratory failure -Likely sec to pneumonia -Currently on 2 L History of atrial fibrillation, DVT, PE, continue Eliquis Nausea vomiting -Elevated lipase Serial abdominal exams, Nausea control JONNA, dehydration, IV fluids Full code Eliquis for DVT prophylaxis Attestations 2 Medical Necessity Statement*: Patient requires hospitalization for altered mental status, UTI, pneumonia, dehydration, JONNA, intractable nausea vomiting, elevated lipase Diagnoses Acute encephalopathy G93.40 Urinary tract infection N39.0 Pneumonia J18.9 Acute kidney injury N17.9 Acute hypoxic respiratory failure J96.01 Nausea & vomiting R11.2
--- NOTE | 2024-09-10 14:46 | ECG_ITS ---
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 Measurements Intervals [place] Rate: 64 P: 109 WI: 211 QRS: 139 QRSD: 87 T: 124 QT: 409 QTc: 423 Interpretive Statements SINUS RHYTHM WITH FIRST DEGREE AV BLOCK POSSIBLE RIGHT VENTRICULAR HYPERTROPHY [SOME/ALL OF: PROMINENT R IN V1, LATE TRANSITION, RAD, ROXANN, SSS] MINIMAL ST DEPRESSION [0.025+ mV ST DEPRESSION] Compared to ECG 09/10/2024 09:58:28 First degree AV block now present ST (T wave) deviation still present Electronically Signed On 09-11-2024 23:07:23 DATA ANALYSIS ASSISTANT by Denver Saldana M.D. [email or web address]
--- NOTE | 2024-09-10 15:22 | CTR_ITS ---
PROCEDURE INFORMATION: Exam: CT Head Without Contrast Exam date and time: 09/10/2024 4:23 PM Age: 79 years old Clinical indication: Altered mental status/memory loss; Additional info: AMS TECHNIQUE: Imaging protocol: Computed tomography of the head without contrast. Radiation optimization: All CT scans at this facility use at least one of these dose optimization techniques: automated exposure control; mA and/or kV adjustment per patient size (includes targeted exams where dose is matched to clinical indication); or iterative reconstruction. COMPARISON: CT head wo con* [id number] 11/28/2023 6:54 AM RADIATION DOSE METRICS: Total DLP (mGy-cm): 1062.18 FINDINGS: Brain: Large amount of diffuse white matter disease likely reflecting chronic microvascular ischemic changes. Chronic left basal ganglia infarct. Cerebral ventricles: No ventriculomegaly. Paranasal sinuses: Visualized sinuses are unremarkable. No fluid levels. Mastoid air cells: Visualized mastoid air cells are well aerated. Bones: Unremarkable. No acute fracture. Soft tissues: Unremarkable. CT/CT head wo con* [id number] IMPRESSION: 1. Negative for intracranial hemorrhage or mass effect. 2. Large amount of diffuse white matter disease likely reflecting chronic microvascular ischemic changes. 3. Chronic left basal ganglia infarct.
[2024-09-10 15:36] LABS: Troponin(5th) Baseline 23 ng/L (0-10)
[2024-09-10 15:37] LABS: Lactic Sepsis W/Reflex 1.6 mmol/L (0.5-2.2)
[2024-09-10 15:43] LABS: Free T4 Free Thyroxine 0.81 ng/dL (0.82-1.77); NT Pro B Type Natriuretic Pept 2505 pg/mL (0-450); Procalcitonin 6.65 ng/mL (0-0.5); T3 Free 1.2 PG/ML (2.0-4.4); Thyroid Stimulating Hormone 2.45 uIU/mL (0.27-4.20)
[2024-09-10 15:48] LABS: Covid PCR NEGATIVE (Negative); Influenza A NEGATIVE (Negative); Influenza B NEGATIVE (Negative); Respiratory Syncytial Virus Ce NEGATIVE (Negative)
[2024-09-10 15:54] LABS: C Reactive Protein 19.2 mg/L (0.0-4.9)
[2024-09-10 16:15] LABS: Gamma Glutamyl Transferase 13 U/L (5-36)
--- NOTE | 2024-09-10 18:17 | PHA.VACGOAL ---
Vancomycin Goal - Goal Vancomycin Goal:: 15-20 mg/L Vancomycin Indication:: Pneumonia - Therapy Current therapy:: Pip/Tazo Day of therpy:: Day []of [] . Actual body weight (kg): 176 lb - Data Labs: WBC 6.13 10^3/uL (3.29-11.43) 09/10/24 10:17 RBC 4.65 10^6/uL (3.85-5.65) 09/10/24 10:17 Hgb 11.30 g/dL (11.27-16.99) 09/10/24 10:17 Hct 38.7 % (36-47) 09/10/24 10:17 MCV 83.2 fl (85-98) L 09/10/24 10:17 MCH 24.3 pg (27-33) L 09/10/24 10:17 MCHC 29.2 g/dL (30-55) L 09/10/24 10:17 RDW 15.6 % (12.1-15.1) H 09/10/24 10:17 Sodium 140 mmol/L (136-145) 09/10/24 10:17 Potassium 4.3 mmol/L (3.5-5.1) 09/10/24 10:17 Chloride 104 mmol/L (98-107) 09/10/24 10:17 Carbon Dioxide 22 mmol/L (22-29) 09/10/24 10:17 Anion Gap 18.3 (5-19) 09/10/24 10:17 BUN 25 mg/dL (8-23) H 09/10/24 10:17 Creatinine 1.5 mg/dL (0.5-0.9) H 09/10/24 10:17 GFR Calculation Not Reportable 09/10/24 10:17 Treatment plan:: new consult Regimen:: 2000 MG LOAD THEN 1000 MG Q24 H MONITOR DAILY
[2024-09-10] MEDS: pantoprazole 40 mg SDV IVP (18:27)
[2024-09-10] MEDS: isosorbide dinitrate 20 mg Tablet PO ×2 (18:27→20:32)
[2024-09-10] MEDS: apixaban 5 mg Tablet PO (18:27)
[2024-09-10 18:29] LABS: Estmated Average Glucose 174; Hemoglobin A1C 7.7 % (4.0-6.0)
[2024-09-10 18:33] LABS: Troponin 5 2HR 23.32 ng/L (0-10); Troponin 5 2HR Delta 0.32 ABS# (0-10)
[2024-09-10] MEDS: vancomycin 2,000 MG/400 ML PIGGYBACK 200 MG IV (18:34)
[2024-09-10 18:56] LABS: Glucose Point of Care 243 mg/dL (70-110)
[2024-09-10] MEDS: insulin lispro 100 unit/1 mL SUBCUT (19:43)
[2024-09-10 20:55] LABS: Glucose Point of Care 194 mg/dL (70-110)
[2024-09-10] MEDS: budesonide 0.5 mg/2 mL Neb INHALATION (21:06)
[2024-09-10] MEDS: ipratropium-albuterol 3 mL Neb INHALATION (21:07)
--- NOTE | 2024-09-10 21:18 | ECG_ITS ---
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 Measurements Intervals [place] Rate: 60 P: -86 CT: 134 QRS: 21 QRSD: 85 T: 75 QT: 415 QTc: 416 Interpretive Statements ECTOPIC ATRIAL RHYTHM NONSPECIFIC ST & T-WAVE ABNORMALITY Compared to ECG 09/10/2024 15:49:02 Junctional rhythm now present T-wave abnormality now present Sinus rhythm no longer present First degree AV block no longer present ST (T wave) deviation no longer present Electronically Signed On 09-11-2024 23:26:15 DRY WALL FINISHER by Denver Saldana M.D. [id number]
[2024-09-10 22:42] LABS: Troponin 5 6HR 26.97 ng/L (0-10); Troponin 5 6HR Delta 3.97 ng/L (0-12)
[2024-09-11] VITALS (15 sets, daily range): BP systolic 97–147; BP diastolic 53–71; PULSE 55–78; RESP 14–18; TEMP 36.7–37.3; O2SAT 93–99
[2024-09-11] MEDS: piperacillin-tazobactam 3.375 GM in sodium chloride 0.9% (plus) 50 ML IV ×3 (03:46→20:12)
[2024-09-11 06:00] LABS: Basophils % 0.1 %; Hematocrit 30.4 % (36-47); Lymphocytes # 0.5 10^3/uL (0.8-4.8); Lymphocytes % 7.2 %; Mean Corpuscular HGB Conc 29.3 g/dL (30-55); Mean Corpuscular Hemoglobin 24.7 pg (27-33); Mean Corpuscular Volume 84.4 fl (85-98); Mean Platelet Volume 11.2 fL (7.4-10.4); Monocytes # 0.3 10^3/uL (0.2-0.9); Monocytes % 4.2 %; Neutrophils # 6.37 10^3/uL (1.8-7.7); Neutrophils % 88.4 %; Nucleated Red Blood Cells % 0 %; Platelet Count 178 10^3/cmm (157-399); White Blood Count 7.21 10^3/uL (3.29-11.43)
[2024-09-11 06:20] LABS: Alanine Aminotransferase 12 U/L (0-33); Albumin Level 3.4 g/dL (3.5-5.2); Alkaline Phosphatase 53 U/L (35-105); Anion Gap 18.7 (5-19); Aspartate Amino Transferase 21 U/L (0-32); Blood Urea Nitrogen 31 mg/dL (8-23); Calcium 8.5 mg/dL (8.5-10.5); Carbon Dioxide 21 mmol/L (22-29); Chloride 101 mmol/L (98-107); Globulin 2.1 g/dL (1.3-4.6); Glucose 142 mg/dL (65-115); Osmolality Calculated 293 mOsm/kg (285-295); Potassium 3.7 mmol/L (3.5-5.1); Sodium 137 mmol/L (136-145); Total Bilirubin 0.2 mg/dL (0.15-1.2); Total Protein 5.5 g/dL (6.6-8.7)
[2024-09-11 06:21] LABS: Creatinine Clr Calc Pharmacy 28.0753
[2024-09-11 06:36] LABS: Glucose Point of Care 132 mg/dL (70-110)
[2024-09-11] MEDS: budesonide 0.5 mg/2 mL Neb INHALATION ×2 (07:51→20:31)
[2024-09-11] MEDS: ipratropium-albuterol 3 mL Neb INHALATION ×4 (07:51→20:31)
[2024-09-11] MEDS: isosorbide dinitrate 20 mg Tablet PO ×3 (08:09→20:12)
[2024-09-11] MEDS: levothyroxine 100 mcg Tablet PO (08:09)
[2024-09-11] MEDS: folic acid 1 mg Tablet PO (08:09)
[2024-09-11] MEDS: aspirin 81 mg EC Tablet PO (08:09)
[2024-09-11] MEDS: sertraline 50 mg Tablet PO (08:09)
[2024-09-11] MEDS: apixaban 5 mg Tablet PO ×2 (08:09→17:49)
--- NOTE | 2024-09-11 10:09 | PC.CHAP ---
Pastoral Care Encounter/Spiritual Assessment Type of Contact [] Declined civil engineer visit [] Patient/Family/Request visit [] Outpatient visit [] Follow-up visit [] Physician referral [] Code/Alert [] Routine visit [] Staff referral [] Actively dying [x] Patient sleeping [] Family support [] [] Out of room [] Palliative care [] [] Receiving care in room [] Pre-surgical visit [] Trauma [] Long length of stay [] ICU visit [] Other: Relational/Emotional Strength [] Patient feels connected with others/family/visitors/staff [] Distress [] Loneliness/isolation [] Abandonment Spirituality of Patient [] Person of [place] [] Attends [facility] of their [place] [] Believes in Prayer [] Reads Bible or Bahai materials [] There are Spiritual issues to be addressed Stitching Machine Setter Interventions [] Prayer [] Active listening [] Non-anxious presence [] Spiritual/emotional support [] Crisis/trauma care [] Spiritual counseling [] Bereavement support [] Provided bereavement packet [] Provided Bible/devotional materials [] Provided toy/stuffed animal, coloring book to patient or family member [] Provided Communion [] Anointing/[place] [] Salvation [] Completed spiritual assessment [] Other: Impact on Illness or Injury [] Angry [] Fearful [] Anxious [] Often cries [] Exhaustion [] Unable to work [] Unable to attend spiritism [] Unable to walk/stand [] Unable to read [] Unable to drive [] Unable to eat/drink [] Unable to sleep [] Unable to be with family [] Patient intubated [] Other: Summary Time spent with patient
[2024-09-11 11:37] LABS: Glucose Point of Care 152 mg/dL (70-110)
[2024-09-11] MEDS: insulin lispro 100 unit/1 mL SUBCUT ×2 (11:58→17:50)
[2024-09-11 16:56] LABS: Glucose Point of Care 209 mg/dL (70-110)
--- NOTE | 2024-09-11 17:11 | P.PN_ITS ---
Subjective 2 Subjective: Patient was seen this morning, he is alert and oriented x 2, follows all commands denies any fevers, chills, cough she tells me that she does not have her teeth and her cannot bring it in for her, no abdominal pain, no nausea, vomiting he is tolerating a clear liquid diet Vitals/I&O/Wt Last Vital Signs Temp 98.3 F 09/11/24 16:00 Pulse 75 09/11/24 16:00 Resp 17 09/11/24 16:00 BP 97/53 09/11/24 16:00 Pulse Ox 95 09/11/24 16:00 O2 Del Method Room Air 09/11/24 16:00 O2 Flow Rate 2 09/10/24 09:52 09/11/24 09/11/24 09/11/24 06:59 14:59 22:59 Intake Total 1969 890 / 890 Balance 1969 890 / 890 Weight last 48 hrs Weight 72.393 kg Weight 69.938 kg Weight 79.832 kg Physical Exam 2 Const: COMMON NORMALS: no acute distress ORIENTATION/CONSCIOUSNESS: Yes awake, Yes oriented to person and Yes oriented to place; not oriented to time Resp: COMMON NORMALS: normal respiratory effort, No retractions and No use of accessory muscles AUSCULTATION: crackles and wheezes Cardio: COMMON NORMALS: regular rate, regular rhythm, S1 normal heart sound present and S2 normal heart sound present RATE: regular rate RHYTHM: r egular rhythm HEART SOUNDS: S1 normal heart sound present and S2 normal heart sound present GI: COMMON NORMALS: Normal to inspection, nondistended, normoactive bowel sounds present and non-tender Extremity: COMMON NORMALS: no pedal edema Neuro: SENSORIUM/ORIENTATION: Yes oriented to person, Yes oriented to place and No oriented to time Psych: COMMON NORMALS: mental status grossly normal Data 09/11/24 04:50 09/11/24 04:50 Micro: Microbiology 09/10/24 10:19 Blood Culture - Preliminary Blood NEGATIVE TO DATE 09/10/24 10:17 Blood Culture - Preliminary Blood NEGATIVE TO DATE A&P Assessment and plan (1) Acute encephalopathy: (2) Urinary tract infection: (3) Pneumonia: (4) Acute kidney injury: (5) Acute hypoxic respiratory failure: (6) Nausea & vomiting: Plan Acute encephalopathy -Likely UTI, pneumonia -IV antibiotics -Neurochecks, monitor mentation -CT head no acute findings Urinary tract infection -IV antibiotics, Zosyn Pneumonia -Seen on CT imaging -Aspiration precautions -Speech therapy eval -Vancomycin, Zosyn -Monitor respiratory status closely Acute hypoxic respiratory failure -Likely sec to pneumonia -Currently on 2 L History of atrial fibrillation, DVT, PE, continue Eliquis Nausea vomiting, advance diet as tolerated -Elevated lipase Serial abdominal exams, CT/CT kidney stone [id number] IMPRESSION: 1. No renal obstruction or calcification. 2. Small amount of air in the urinary bladder may be from recent catheterization. 3. Dense consolidation consistent with pneumonia LEFT lower lobe. 4. Additional more scattered subsegmental consolidations in the RIGHT middle lobe and RIGHT lower lobe consistent with pneumonia. 5. Prior cholecystectomy. 6. No ascites or adenopathy. JONNA, dehydration, IV fluids Full code Eliquis for DVT prophylaxis Attestations 2 Medical Necessity Statement*: Patient requires hospitalization for UTI, pneumonia, acute hypoxic respiratory failure Diagnoses Acute encephalopathy G93.40 Urinary tract infection N39.0 Pneumonia J18.9 Acute kidney injury N17.9 Acute hypoxic respiratory failure J96.01 Nausea & vomiting R11.2
[2024-09-11] MEDS: pantoprazole 40 mg SDV IVP (17:49)
[2024-09-11 19:22] LABS: Procalcitonin 13.62 ng/mL (0-0.5)
[2024-09-11 19:43] LABS: Vancomycin Trough 17.5 ug/mL (10-15)
[2024-09-11 20:45] LABS: Glucose Point of Care 101 mg/dL (70-110)
[2024-09-12] VITALS (13 sets, daily range): BP systolic 108–139; BP diastolic 44–70; PULSE 49–65; RESP 15–20; TEMP 36.8–37.7; O2SAT 93–99
[2024-09-12] MEDS: piperacillin-tazobactam 3.375 GM in sodium chloride 0.9% (plus) 50 ML IV ×3 (03:30→20:14)
[2024-09-12 04:43] LABS: Basophils % 0.4 %; Eosinophils % 0.7 %; Hematocrit 28.7 % (36-47); Lymphocytes % 17.6 %; Mean Corpuscular HGB Conc 28.9 g/dL (30-55); Mean Corpuscular Hemoglobin 24.6 pg (27-33); Mean Corpuscular Volume 84.9 fl (85-98); Mean Platelet Volume 10.8 fL (7.4-10.4); Monocytes # 0.3 10^3/uL (0.2-0.9); Neutrophils # 4.09 10^3/uL (1.8-7.7); Neutrophils % 75.9 %; Nucleated Red Blood Cells % 0 %; Platelet Count 158 10^3/cmm (157-399); Red Blood Count 3.38 10^6/uL (3.85-5.65); Red Cell Distribution Width 16.1 % (12.1-15.1); White Blood Count 5.39 10^3/uL (3.29-11.43)
[2024-09-12 05:18] LABS: Procalcitonin 11.82 ng/mL (0-0.5)
[2024-09-12 05:21] LABS: Alanine Aminotransferase 11 U/L (0-33); Albumin Level 3.1 g/dL (3.5-5.2); Alkaline Phosphatase 48 U/L (35-105); Anion Gap 15.7 (5-19); Aspartate Amino Transferase 21 U/L (0-32); Blood Urea Nitrogen 29 mg/dL (8-23); Calcium 8.3 mg/dL (8.5-10.5); Carbon Dioxide 21 mmol/L (22-29); Chloride 105 mmol/L (98-107); Creatinine Clr Calc Pharmacy 29.3353; Globulin 2.2 g/dL (1.3-4.6); Glucose 107 mg/dL (65-115); Osmolality Calculated 292 mOsm/kg (285-295); Potassium 3.7 mmol/L (3.5-5.1); Sodium 138 mmol/L (136-145); Total Bilirubin 0.2 mg/dL (0.15-1.2); Total Protein 5.3 g/dL (6.6-8.7)
[2024-09-12 06:28] LABS: Glucose Point of Care 105 mg/dL (70-110)
[2024-09-12 08:27] LABS: Erythrocyte Sedimentation Rate 8 mm/hr (0-15)
[2024-09-12] MEDS: budesonide 0.5 mg/2 mL Neb INHALATION ×2 (08:37→19:45)
[2024-09-12] MEDS: ipratropium-albuterol 3 mL Neb INHALATION ×4 (08:37→19:45)
[2024-09-12] MEDS: isosorbide dinitrate 20 mg Tablet PO ×2 (10:02→20:15)
[2024-09-12] MEDS: levothyroxine 100 mcg Tablet PO (10:03)
[2024-09-12] MEDS: sertraline 50 mg Tablet PO (10:03)
[2024-09-12] MEDS: apixaban 5 mg Tablet PO ×2 (10:03→18:01)
[2024-09-12] MEDS: folic acid 1 mg Tablet PO (10:03)
[2024-09-12] MEDS: aspirin 81 mg EC Tablet PO (10:03)
[2024-09-12] MEDS: vancomycin 500 MG in sodium chloride 0.9% (plus) 100 ML 200 MG IV (10:39)
[2024-09-12 10:59] LABS: Glucose Point of Care 160 mg/dL (70-110)
[2024-09-12] MEDS: insulin lispro 100 unit/1 mL SUBCUT (11:44)
--- NOTE | 2024-09-12 15:33 | P.PN_ITS ---
Subjective 2 Subjective: Patient was seen this morning, she is alert to person, to place, not to time she follows commands denies any fevers, no chills, no cough we discussed her anemia she denies any bloody or black stools, no history of GI bleeds Vitals/I&O/Wt Last Vital Signs Temp 98.3 F 09/12/24 12:00 Pulse 54 L 09/12/24 15:16 Resp 18 09/12/24 15:16 BP 108/44 09/12/24 12:00 Pulse Ox 98 09/12/24 15:16 O2 Del Method Room Air 09/12/24 15:16 O2 Flow Rate 2 09/10/24 09:52 09/12/24 09/12/24 09/12/24 06:59 14:59 22:59 Intake Total 50 / 1110 510 / 510 Balance 50 / 1110 510 / 510 Weight last 48 hrs Weight 69.309 kg Weight 72.393 kg Weight 69.938 kg Physical Exam 2 Const: COMMON NORMALS: no acute distress and patient oriented x3 Resp: COMMON NORMALS: normal respiratory effort, No retractions and No use of accessory muscles AUSCULTATION: crackles and wheezes Cardio: COMMON NORMALS: regular rate, regular rhythm, S1 normal heart sound present and S2 normal heart sound present RATE: regular rate RHYTHM: r egular rhythm HEART SOUNDS: S1 normal heart sound present and S2 normal heart sound present GI: COMMON NORMALS: Normal to inspection, nondistended, normoactive bowel sounds present and non-tender Extremity: COMMON NORMALS: no pedal edema Neuro: COMMON NORMALS: patient oriented x3 Psych: COMMON NORMALS: mental status grossly normal Data 09/12/24 02:46 09/12/24 02:46 Micro: Microbiology 09/10/24 10:19 Blood Culture - Preliminary Blood NEGATIVE TO DATE 09/10/24 10:17 Blood Culture - Preliminary Blood NEGATIVE TO DATE A&P Assessment and plan (1) Acute encephalopathy: (2) Urinary tract infection: (3) Pneumonia: (4) Acute kidney injury: (5) Acute hypoxic respiratory failure: (6) Nausea & vomiting: (7) Acute anemia: Plan Acute encephalopathy resolving -Likely UTI, pneumonia -IV antibiotics -Neurochecks, monitor mentation -CT head no acute findings Urinary tract infection -IV antibiotics, Zosyn Pneumonia -Seen on CT imaging -Aspiration precautions -Speech therapy eval -Vancomycin, Zosyn -Monitor respiratory status closely Acute hypoxic respiratory failure -Likely sec to pneumonia -Currently on 2 L History of atrial fibrillation, DVT, PE, continue Eliquis Nausea vomiting, advance diet as tolerated -Elevated lipase Serial abdominal exams, CT/CT kidney stone [id number] IMPRESSION: 1. No renal obstruction or calcification. 2. Small amount of air in the urinary bladder may be from recent catheterization. 3. Dense consolidation consistent with pneumonia LEFT lower lobe. 4. Additional more scattered subsegmental consolidations in the RIGHT middle lobe and RIGHT lower lobe consistent with pneumonia. 5. Prior cholecystectomy. 6. No ascites or adenopathy. JONNA, dehydration, Acute anemia -Monitor hemoglobin this afternoon -Iron studies -Hemoccult stool Full code Eliquis for DVT prophylaxis Attestations 2 Medical Necessity Statement*: Patient requires hospitalization for pneumonia, UTI, respiratory failure, acute anemia Diagnoses Acute encephalopathy G93.40 Urinary tract infection N39.0 Pneumonia J18.9 Acute kidney injury N17.9 Acute hypoxic respiratory failure J96.01 Nausea & vomiting R11.2 Acute anemia D64.9
[2024-09-12 16:05] LABS: Glucose Point of Care 134 mg/dL (70-110)
[2024-09-12 16:45] LABS: Hematocrit 27.9 % (36-47)
[2024-09-12 17:00] LABS: Ferritin 44 ng/mL (15-150); Iron 8 ug/dL (37-145); Percent Saturation 3.2 % (20-50); Total Iron Binding Capacity 248 mcg/dl; Unsaturated Iron Binding 240 ug/dL (112-347)
[2024-09-12] MEDS: pantoprazole 40 mg SDV IVP (18:01)
[2024-09-12 20:46] LABS: Glucose Point of Care 221 mg/dL (70-110)
[2024-09-13] VITALS (7 sets, daily range): BP systolic 125–153; BP diastolic 53–81; PULSE 47–58; RESP 15–18; TEMP 36.6–37.2; O2SAT 94–99
[2024-09-13] MEDS: piperacillin-tazobactam 3.375 GM in sodium chloride 0.9% (plus) 50 ML IV (03:44)
[2024-09-13 03:57] LABS: Basophils % 0.2 %; Eosinophils # 0.1 10^3/uL (0.0-0.8); Eosinophils % 1.2 %; Lymphocytes # 0.9 10^3/uL (0.8-4.8); Mean Corpuscular HGB Conc 29.6 g/dL (30-55); Mean Corpuscular Hemoglobin 24.1 pg (27-33); Mean Corpuscular Volume 81.4 fl (85-98); Mean Platelet Volume 11.8 fL (7.4-10.4); Monocytes # 0.3 10^3/uL (0.2-0.9); Monocytes % 5.4 %; Neutrophils # 3.62 10^3/uL (1.8-7.7); Neutrophils % 74.8 %; Nucleated Red Blood Cells % 0 %; Platelet Count 182 10^3/cmm (157-399); Red Blood Count 3.44 10^6/uL (3.85-5.65); White Blood Count 4.84 10^3/uL (3.29-11.43)
[2024-09-13 04:14] LABS: Alanine Aminotransferase 10 U/L (0-33); Albumin Level 3.2 g/dL (3.5-5.2); Alkaline Phosphatase 48 U/L (35-105); Anion Gap 15.4 (5-19); Aspartate Amino Transferase 19 U/L (0-32); Blood Urea Nitrogen 25 mg/dL (8-23); Calcium 7.9 mg/dL (8.5-10.5); Carbon Dioxide 22 mmol/L (22-29); Chloride 103 mmol/L (98-107); Creatinine Clr Calc Pharmacy 31.4307; Glucose 141 mg/dL (65-115); Osmolality Calculated 291 mOsm/kg (285-295); Potassium 3.4 mmol/L (3.5-5.1); Sodium 137 mmol/L (136-145); Total Bilirubin 0.2 mg/dL (0.15-1.2); Total Protein 5.2 g/dL (6.6-8.7)
[2024-09-13 04:22] LABS: Procalcitonin 6.97 ng/mL (0-0.5)
[2024-09-13 06:32] LABS: Glucose Point of Care 128 mg/dL (70-110)
[2024-09-13] MEDS: ipratropium-albuterol 3 mL Neb INHALATION ×2 (08:30→11:40)
[2024-09-13] MEDS: budesonide 0.5 mg/2 mL Neb INHALATION (08:30)
[2024-09-13] MEDS: levothyroxine 100 mcg Tablet PO (10:27)
[2024-09-13] MEDS: aspirin 81 mg EC Tablet PO (10:27)
[2024-09-13] MEDS: apixaban 5 mg Tablet PO (10:27)
[2024-09-13] MEDS: sertraline 50 mg Tablet PO (10:27)
[2024-09-13] MEDS: pantoprazole 40 mg SDV IVP (10:27)
[2024-09-13] MEDS: folic acid 1 mg Tablet PO (10:27)
[2024-09-13] MEDS: sucralfate 1 gm/10 mL Oral Liq UDC PO (10:27)
[2024-09-13] MEDS: acetaminophen 325 mg Tablet 650 MG PO (10:28)
--- NOTE | 2024-09-13 10:56 | ECG_ITS ---
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 Measurements Intervals [place] Rate: 47 P: 0 MS: 0 QRS: 22 QRSD: 89 T: 18 QT: 476 QTc: 422 Interpretive Statements ATRIAL FIBRILLATION WITH SLOW VENTRICULAR RESPONSE WITH ABERRANT CONDUCTION OR VENTRICULAR PREMATURE COMPLEXES POSSIBLE ANTERIOR MYOCARDIAL INFARCTION , PROBABLY OLD [30 ms Q WAVE IN V3/V4, OR R < 0.2 mV IN V4] ABNORMAL RHYTHM ECG Compared to ECG 09/10/2024 21:18:06 Ventricular premature complex(es) now present Aberrant conduction of supraventricular beat(s) now present Myocardial infarct finding now present Ectopic atrial rhythm no longer present T-wave abnormality no longer present Electronically Signed On 09-16-2024 12:44:04 CRIMINAL RECORDS TECHNICIAN by Denver Saldana M.D. [id number]
--- NOTE | 2024-09-13 11:07 | P.DS_ITS ---
Discharge Providers Date of Admission: 09/10/24 16:21 Date of Discharge: September 13, 2024 Attending Provider at Admission: Michele Ibarra MD Attending Provider at Discharge: Michele Ibarra MD Diagnoses at Discharge Discharge Diagnosis (1) Acute encephalopathy: Status: Resolved (2) Urinary tract infection: Status: Resolved (3) Pneumonia: Status: Resolved (4) Acute kidney injury: Status: Resolved (5) Acute hypoxic respiratory failure: Status: Resolved (6) Nausea & vomiting: Status: Resolved (7) Acute anemia: Status: Acute Reason for Visit Reason for Visit: n/v weakness Hospital Course Hospital Course Emma Kraus is a 79 year old female with a past medical history of anemia, atrial fibrillation, history of CVA, history of chronic right carotid artery occlusion, CAD status post CABG, hypertension, hyperlipidemia, type 2 diabetes mellitus, history of DVT and PE, history of osteoporosis, hypothyroidism who presents [facility] due to nausea, vomiting, fatigue, malaise. Currently patient is alert to person, to place, not to time she follows commands, she reports that she lives at home here [place] with her she has been experiencing nausea vomiting, abdominal pain, no diarrhea, no fevers, does have report chills, reports fatigue, malaise. During my history of taking, it is difficult to get history from her, some of it she does not have her dentures in, also she has to be redirected multiple times, a lot of times she rouses off, or she does not understand my questioning, no facial droop, no slurring of words, no focal weakness I could discern but does have encephalopathy Patient was admitted to [facility] for acute encephalopathy, UTI, pneumonia, received broad-spectrum antibiotic therapy overall clinically improved, mentation back to baseline Pneumonia, managed with broad-spectrum antibiotic therapy, overall clinically improved, discharged on p.o. antibiotics Acute hypoxic respiratory failure secondary pneumonia, resolved Nausea vomiting elevated lipase, received IV fluids overall clinically improved Acute on chronic anemia, discharged with Protonix, with close follow-up with primary care provider Due to bradycardia, with history of atrial fibrillation, discharged with event monitor Physical Exam Const: COMMON NORMALS: no acute distress and patient oriented x3 Resp: COMMON NORMALS: normal respiratory effort, No retractions, No use of accessory muscles and clear to auscultation bilaterally AUSCULTATION: clear to auscultation bilaterally Cardio: COMMON NORMALS: regular rate, regular rhythm, S1 normal heart sound present and S2 normal heart sound present RATE: regular rate RHYTHM: regular rhythm HEART SOUNDS: S1 normal heart sound present and S2 normal heart sound present GI: COMMON NORMALS: Normal to inspection, nondistended, normoactive bowel sounds present and non-tender Extremity: COMMON NORMALS: no pedal edema Neuro: COMMON NORMALS: patient oriented x3 Psych: COMMON NORMALS: mental status grossly normal Discharge Data Studies Completed and Pending Completed Studies During Hospitalization Category Date Time Status CT head wo con* 03000 Stat Cat Scan 09/10/24 15:[address] kidney stone [id number] Stat Cat Scan 09/10/24 11:53 Completed XR chest 1V portable [id number] Stat Exams 09/10/24 09:54 Completed Pending at discharge Category Date Time Status Blood Culture Stat Lab 09/10/24 10:19 Results Sputum Culture and Gram Stain Stat Lab 09/10/24 10:25 Uncollected Urine Culture Stat Lab 09/12/24 08:20 Ordered Radiology Impressions Chest X-Ray 09/10/24 09:54 Impression: 1. Bilateral patchy lower lobe pulmonary opacities which could represent pneumonia and recommend repeat chest x-ray in 2 to 3 days. 2. Atherosclerosis and cardiomegaly. Abdomen/Pelvis CT 09/10/24 11:53 IMPRESSION: 1. No renal obstruction or calcification. 2. Small amount of air in the urinary bladder may be from recent catheterization. 3. Dense consolidation consistent with pneumonia LEFT lower lobe. 4. Additional more scattered subsegmental consolidations in the RIGHT middle lobe and RIGHT lower lobe consistent with pneumonia. 5. Prior cholecystectomy. 6. No ascites or adenopathy. Head CT 09/10/24 15:22 IMPRESSION: 1. Negative for intracranial hemorrhage or mass effect. 2. Large amount of diffuse white matter disease likely reflecting chronic microvascular ischemic changes. 3. Chronic left basal ganglia infarct. Laboratory Results WBC 4.84 10^3/uL (3.29-11.43) 09/13/24 02:36 RBC 3.44 10^6/uL (3.85-5.65) L 09/13/24 02:36 Hgb 8.30 g/dL (11.27-16.99) L 09/13/24 02:36 Hct 28.0 % (36-47) L 09/13/24 02:36 MCV 81.4 fl (85-98) L 09/13/24 02:36 MCH 24.1 pg (27-33) L 09/13/24 02:36 MCHC 29.6 g/dL (30-55) L 09/13/24 02:36 RDW 16.0 % (12.1-15.1) H 09/13/24 02:36 Plt Count 182 10^3/cmm (157-399) 09/13/24 02:36 MPV 11.8 fL (7.4-10.4) H 09/13/24 02:36 Neut % (Auto) 74.8 % 09/13/24 02:36 Lymph % (Auto) 18.0 % 09/13/24 02:36 [place] % (Auto) 5.4 % 09/13/24 02:36 Eos % (Auto) 1.2 % 09/13/24 02:36 Baso % (Auto) 0.2 % 09/13/24 02:36 Neut # (Auto) 3.62 10^3/uL (1.8-7.7) 09/13/24 02:36 Lymph # (Auto) 0.9 10^3/uL (0.8-4.8) 09/13/24 02:36 [place] # (Auto) 0.3 10^3/uL (0.2-0.9) 09/13/24 02:36 Eos # (Auto) 0.1 10^3/uL (0.0-0.8) 09/13/24 02:36 Baso # (Auto) 0.0 10^3/uL (0.0-0.1) 09/13/24 02:36 Nucleated RBC % (auto) 0 % 09/13/24 02:36 Nucleated RBCs # 0.0 /100WBC 09/13/24 02:36 ESR 8 mm/hr (0-15) 09/12/24 02:46 Sodium 137 mmol/L (136-145) 09/13/24 02:36 Potassium 3.4 mmol/L (3.5-5.1) L 09/13/24 02:36 Chloride 103 mmol/L (98-107) 09/13/24 02:36 Carbon Dioxide 22 mmol/L (22-29) 09/13/24 02:36 Anion Gap 15.4 (5-19) 09/13/24 02:36 BUN 25 mg/dL (8-23) H 09/13/24 02:36 Creatinine 1.4 mg/dL (0.5-0.9) H 09/13/24 02:36 GFR Calculation Not Reportable 09/13/24 02:36 Glucose 141 mg/dL (65-115) H 09/13/24 02:36 POC Glucose 128 mg/dL (70-110) H 09/13/24 06:23 Estimat Average Glucose 174 09/10/24 18:02 Hemoglobin A1c 7.7 % (4.0-6.0) H 09/10/24 18:02 Calculated Osmolality 291 mOsm/kg (285-295) 09/13/24 02:36 Lactic Acid 1.6 mmol/L (0.5-2.2) 09/10/24 13:03 Calcium 7.9 mg/dL (8.5-10.5) L 09/13/24 02:36 Iron 8 ug/dL (37-145) L 09/12/24 16:35 TIBC 248 mcg/dl 09/12/24 16:35 % Saturation 3.2 % (20-50) L 09/12/24 16:35 Unsat Iron Binding 240 ug/dL (112-347) 09/12/24 16:35 Ferritin 44 ng/mL (15-150) 09/12/24 16:35 Total Bilirubin 0.2 mg/dL (0.15-1.2) 09/13/24 02:36 GGT 13 U/L (5-36) 09/10/24 15:03 AST 19 U/L (0-32) 09/13/24 02:36 ALT 10 U/L (0-33) 09/13/24 02:36 Alkaline Phosphatase 48 U/L (35-105) 09/13/24 02:36 Troponin T Baseline 23 ng/L (0-10) H 09/10/24 13:03 Troponin T 120 Minute 23.32 ng/L (0-10) H 09/10/24 18:02 Delta Troponin T 0.32 ABS# (0-10) 09/10/24 18:02 Troponin T Hi Sens 6Hr 26.97 ng/L (0-10) H 09/10/24 22:09 Troponin T Hi Sens 6Hr Delta 3.97 ng/L (0-12) 09/10/24 22:09 C-Reactive Protein 19.2 mg/L (0.0-4.9) H 09/10/24 15:03 NT-Pro-B Natriuret Pep 2505 pg/mL (0-450) H 09/10/24 15:03 Total Protein 5.2 g/dL (6.6-8.7) L 09/13/24 02:36 Albumin 3.2 g/dL (3.5-5.2) L 09/13/24 02:36 Globulin 2.0 g/dL (1.3-4.6) 09/13/24 02:36 Lipase 289 U/L (13-60) H 09/10/24 10:17 Procalcitonin 6.97 ng/mL (0-0.5) H 09/13/24 02:36 TSH 2.45 uIU/mL (0.27-4.20) 09/10/24 15:03 Free T4 0.81 ng/dL (0.82-1.77) L 09/10/24 15:03 Free T3 1.2 PG/ML (2.0-4.4) L 09/10/24 15:03 Urine Color Yellow (Yellow) 09/10/24 10:35 Urine Appearance Clear (CLEAR) 09/10/24 10:35 Urine pH 5.0 (5-7) 09/10/24 10:35 Ur Specific [place] 1.023 (1.005-1.030) 09/10/24 10:35 Urine Protein 2+ (Negative) A 09/10/24 10:35 Urine Glucose (UA) 3+ (Normal) H 09/10/24 10:35 Urine Ketones Negative (Negative) 09/10/24 10:35 Urine Blood 1+ (Negative) A 09/10/24 10:35 Urine Nitrate Positive (Negative) A 09/10/24 10:35 Urine Bilirubin Negative (Negative) 09/10/24 10:35 Urine Urobilinogen 0.2 mg/dL (Negative) 09/10/24 10:35 Ur Leukocyte Esterase Negative (Negative) 09/10/24 10:35 Urine RBC 0-2 /hpf (0-2) 09/10/24 10:35 Urine WBC 6-10 /hpf (0-5) 09/10/24 10:35 Ur Squamous Epith Cells 0-5 /hpf (0-5) 09/10/24 10:35 Amorphous Sediment Not Reportable 09/10/24 10:35 Urine Bacteria 4+ /hpf (NONE) H 09/10/24 10:35 Hyaline Casts 0-4 /lpf H 09/10/24 10:35 Vancomycin Trough 17.5 ug/mL (10-15) H 09/11/24 19:19 Random Vancomycin 15.0 ug/mL (20.0-40.0) L 09/13/24 02:36 Coronavirus (PCR) Negative (Negative) 09/10/24 15:00 Influenza A (PCR) Negative (Negative) 09/10/24 15:00 Influenza Type B (PCR) Negative (Negative) 09/10/24 15:00 RSV (PCR) Negative (Negative) 09/10/24 15:00 Vitals Last Vital Signs Temp 98.5 F 09/13/24 07:30 Pulse 47 L 09/13/24 08:30 Resp 18 09/13/24 08:30 BP 149/55 09/13/24 07:30 Pulse Ox 95 09/13/24 08:30 O2 Del Method Room Air 09/13/24 08:30 O2 Flow Rate 2 09/10/24 09:52 Discharge Plan Discharge Patient Disposition: Home Condition: Stable Prescriptions: New pantoprazole [Protonix] 40 mg tablet,delayed release (DR/EC) 40 mg PO BID 30 Days Qty: 60 0RF sucralfate [Carafate] 1 gram tablet 1 g PO BID 28 Days Qty: 56 0RF Continued sertraline 50 mg tablet 50 mg PO DAILY Eliquis 5 mg tablet 5 mg PO BID aspirin 81 mg Tablet,Delayed Release (Dr/Ec) 81 mg PO DAILY folic acid 1 mg Tablet 1 mg PO DAILY levothyroxine 100 mcg tablet 100 mcg PO DAILY Jardiance 25 mg tablet 25 mg PO DAILY Held isosorbide dinitrate 20 mg tablet 20 mg PO TID Hold Instructions: Resume on 10/04/24. hold until you see PMD Discontinued pantoprazole 20 mg tablet,delayed release (DR/EC) 20 mg PO BID No Action furosemide 40 mg tablet 20 mg PO DAILY pantoprazole 20 mg tablet,delayed release (DR/EC) 20 mg PO BID cyanocobalamin (vitamin B-12) [B-12 DOTS] 500 mcg Tablet 250 mcg PO DAILY nitroglycerin 0.4 mg Tablet, Sublingual 0.4 mg SUBLINGUAL Q5M PRN (Reason: Chest Pain) Rx Instructions: do not exceed 3 doses per episode bisacodyl 5 mg Tablet,Delayed Release (Dr/Ec) 10 mg PO DAILY PRN (Reason: Constipation (see protocol)) Qty: 30 0RF Discharge Orders: Discharge Order (Routine); Ordered 09/13/24 Ordered By: Michele Ibarra Other Ambulatory Orders: MCT/Event Monitor 30 Days (Routine) Timeframe: 1 Day Facility: [facility] - Location: Radiology Ordered By: Michele Ibarra Referrals: Gilbert Clay MD [Physician] - 2 weeks (egd We have notified your physician's clinic of the need for a follow-up appointment to be scheduled. If you have not heard from them within the next 2 business days, please call them directly. ) Narinder Weems MD [Hospitalist] - 1 month (acute anemia We have notified your physician's clinic of the need for a follow-up appointment to be scheduled. If you have not heard from them within the next 2 business days, please call them directly. ) Denver Saldana M.D [Physician] - 2 weeks (chf and bradycardia We have notified your physician's clinic of the need for a follow-up appointment to be scheduled. If you have not heard from them within the next 2 business days, please call them directly. ) Discharge Diet: Cardiac Discharge Activity: Resume usual activity Patient Instructions: Iron Supplements (By mouth) (Duofer, Fe-20, Bifera, Elliott-Iron), Sucralfate (By mouth) (Carafate), Levofloxacin (By mouth) (Levaquin, Levaquin Leva-kb), Pantoprazole (By mouth) (Protonix), Acute Kidney Injury (DC), Urinary Tract Infection in Women (DC), Bacterial Pneumonia (DC), Opioid Safety Activity Restrictions/Additional Instructions: - Please have your primary care provider recheck your hemoglobin in 48 hours, hemoglobin discharge 8.3 -Please have your primary care provider recheck your kidney function in 48 hours, creatinine discharge 1.4 -Please monitor your low heart rate, event monitor ordered, follow-up with cardiology in 1 month -Please take antibiotics as prescribed -If you have chest pain, lightness, dizziness, shortness of breath please go to emergency room -If you develop bloody or black stools please go to the emergency room Discharge Attestations Time Spent in Discharge Care*: greater than 30 min Quality Metrics Clinical Quality Measures [ No reported AMI, CVA or VTE this stay] Coding Level of Care Code 89649 Total time (in minutes) for Discharge: 45 Diagnoses Acute encephalopathy G93.40 Urinary tract infection N39.0 Pneumonia J18.9 Acute kidney injury N17.9 Acute hypoxic respiratory failure J96.01 Nausea & vomiting R11.2 Acute anemia D64.9
[2024-09-13 11:13] LABS: Glucose Point of Care 125 mg/dL (70-110)
[2024-09-13] MEDS: iron sucrose 200 MG in sodium chloride 0.9% (100 ml) 100 ML 220 MG IV (11:46)
--- NOTE | 2024-09-13 12:23 | PC.SOCIAL ---
IMM Update pg 2 of IMM updated and reviewed w/ patient. Copy provided and copy dated, initialed and placed in chart.
== END 2024-09-13 13:17 | disposition home or self-care (01) | DRG 682 ==
LOC: ER 14:47 → MEDSURG 16:21
PROVIDERS: Admitting Provider Family Medicine; Emergency Provider Family Medicine; Visit Provider Family Medicine
DX: N17.9 Acute kidney failure, unspecified (principal); G93.41 Metabolic encephalopathy; J18.9 Pneumonia, unspecified organism; J96.01 Acute respiratory failure with hypoxia; N39.0 Urinary tract infection, site not specified; D64.9 Anemia, unspecified; I48.91 Unspecified atrial fibrillation; Z86.73 Personal history of transient ischemic attack (TIA), and cerebral infarction without residual deficits; I25.10 Atherosclerotic heart disease of native coronary artery without angina pectoris; Z95.1 Presence of aortocoronary bypass graft; I10 Essential (primary) hypertension; E78.5 Hyperlipidemia, unspecified; E11.9 Type 2 diabetes mellitus without complications; Z86.718 Personal history of other venous thrombosis and embolism; Z86.711 Personal history of pulmonary embolism; M81.0 Age-related osteoporosis without current pathological fracture; E03.9 Hypothyroidism, unspecified; Z79.01 Long term (current) use of anticoagulants; Z79.82 Long term (current) use of aspirin; I65.21 Occlusion and stenosis of right carotid artery; Z79.84 Long term (current) use of oral hypoglycemic drugs; Z90.49 Acquired absence of other specified parts of digestive tract; Z95.828 Presence of other vascular implants and grafts; E86.0 Dehydration
CPT/HCPCS: 36415; 36416; 70450; 71045; 74176; 80053; 80202; 81001; 82274; 82728; 82962; 82977; 83036; 83540; 83550; 83605; 83690; 83880; 84145; 84439; 84443; 84481; 84484; 85014; 85018; 85025; 85651; 86140; 87040; 87637; 92610; 93005; 94640; 96365; 96372; 97161; 97530; 99285; J1756; J1815; J2470; J2543; J3370; J3372; J7626

== ENCOUNTER 2024-09-15 08:04 | Observation (INO) | payer MEDICARE, MEDICAID, SELFPAY ==
[2024-09-15] VITALS (11 sets, daily range): BP systolic 142–184; BP diastolic 55–95; PULSE 52–72; RESP 15–16; TEMP 36.6–37.5; O2SAT 95–96; BMI 28.3
--- NOTE | 2024-09-15 08:09 | XR_ITS ---
WS: [id number] Exam: XR chest 1V portable [id number] Date/Time of Exam: 09/15/2024 8:12 AM Reason For Exam: weakness Comparison 09/10/2024. New patchy infiltrate seen in the mid and upper RIGHT lung suggesting pneumonia. Previously noted bas al infiltrates have almost completely cleared. Normal cardiomediastinal silhouette. Signs of previous CABG surgery. No pleural effusions or pneumothorax. Bony structures are intact. Monitoring leads sup erimpose the chest. XR/XR chest 1V portable [id number] IMPRESSION: 1. Previously noted bibasal infiltrates almost completely resolved. 2. New infiltrate in the mid and upper RIGHT lung suggesting active pneumonia.
[2024-09-15 08:36] LABS: Basophils % 0.3 %; Eosinophils # 0.1 10^3/uL (0.0-0.8); Hematocrit 32.2 % (36-47); Lymphocytes # 0.9 10^3/uL (0.8-4.8); Lymphocytes % 8.5 %; Mean Corpuscular HGB Conc 29.2 g/dL (30-55); Mean Corpuscular Volume 82.4 fl (85-98); Mean Platelet Volume 10.4 fL (7.4-10.4); Monocytes # 0.5 10^3/uL (0.2-0.9); Monocytes % 4.9 %; Neutrophils # 8.66 10^3/uL (1.8-7.7); Neutrophils % 84.8 %; Nucleated Red Blood Cells % 0 %; Platelet Count 198 10^3/cmm (157-399); Red Blood Count 3.91 10^6/uL (3.85-5.65); Red Cell Distribution Width 15.9 % (12.1-15.1); White Blood Count 10.21 10^3/uL (3.29-11.43)
--- NOTE | 2024-09-15 08:39 | ED_ITS ---
HPI - Weakness 2 General: Chief complaint: Weakness Stated complaint: weakness Time Seen by Provider: 09/15/24 08:08 Source: patient and EMS Mode of arrival: EMS Limitations: no limitations History of Present Illness: 79-year-old female is here with EMS for generalized weakness patient had a recent hospital admission for UTI pneumonia was discharged 2 days ago per EMS he states she has not been able ambulate since being home has been extremely weak states that her states he is not able to care for her and is not able to get her out of bed. She has no other complaints here besides she states she feels extremely weak. Associated symptoms: Denies chest pain, chills, fever(s), headache(s), nausea or vomiting Review of Systems 2 Const: Reports: fatigue and malaise; Denies: fever(s), chills, body aches or change in appetite ENMT: Denies: throat pain or dental pain Card: Denies: chest pain Resp: Denies: dyspnea GI: Denies: abdominal pain, nausea, vomiting or diarrhea Musc: Denies: neck pain or back pain Skin/Breast: Denies: rash Neuro: Denies: headache(s) PFSH ED 2 PFSH: Medical History History of CAD (coronary artery disease) Hyperlipidemia History of hypertension Stenosis of right carotid artery History of CVA (cerebrovascular accident) History of pulmonary embolism History of DVT (deep vein thrombosis) History of atrial fibrillation History of type 2 diabetes mellitus Surgical History History of cholecystectomy History of coronary artery bypass graft S/P IVC filter Family History Other CAD (coronary artery disease) Diabetes Hyperlipidemia Hypertension Social History Smoking and tobacco/nicotine status: never used tobacco/nicotine Alcohol intake: never Substance/Drug Use: never Physical Exam 2 Const: COMMON NORMALS: patient oriented x3 GENERAL APPEARANCE: frail appearing HENMT: COMMON NORMALS: normocephalic and atraumatic HEAD & SCALP: n ormocephalic and atraumatic Eye: COMMON NORMALS: Equal, round and reactive pupils present and EOMs intact bilaterally PUPIL: Yes Equal, round and reactive pupils present Neck/C-Spine: COMMON NORMALS: full ROM and supple Chest: COMMONS NORMALS: normal inspection of the chest and normal palpation of entire chest wall Resp: COMMON NORMALS: normal respiratory effort, No retractions, No use of accessory muscles and clear to auscultation bilaterally AUSCULTATION: clear to auscultation bilaterally Cardio: COMMON NORMALS: regular rate, regular rhythm and No murmurs present (Cardio) RATE: regular rate RHYTHM: regular rhythm GI: COMMON NORMALS: Normal to inspection, nondistended, normoactive bowel sounds present, Soft to palpation, non-tender and no masses PALPATION: Yes Soft to palpation Extremity: COMMON NORMALS: normal to inspection and full ROM Neuro: COMMON NORMALS: patient oriented x3, moves all extremities and no focal motor deficits Psych: COMMON NORMALS: mental status grossly normal, Normal thought process present and cooperative THOUGHT PROCESS: Normal thought process present Skin: COMMON NORMALS: no rashes or lesions noted and no wounds GENERAL SKIN EXAM: no rashes or lesions noted Course 2 Vital Signs: Vital signs: Vital Signs Temperature 99.5 F 09/15/24 08:05 Pulse Rate 58 L 09/15/24 09:34 Respiratory Rate 16 09/15/24 08:05 Blood Pressure 166/95 09/15/24 09:34 Pulse Oximetry 95 09/15/24 09:34 Oxygen Delivery Me thod Room Air 09/15/24 09:34 MDM - Weakness Medical Decision Making Patient presents here with generalized weakness x-ray shows pulm edema versus worsening pneumonia I did speak to hospitalist will admit at this time as she is too weak to be able to take care of herself at home and her is unable to take care of her and has worsening pneumonia. Medical Records I reviewed the patient's medical records. Lab Data I reviewed the patient's lab results. 09/15/24 08:31 09/15/24 08:31 Radiology Impressions Chest X-Ray 09/15/24 08:09 IMPRESSION: 1. Previously noted bibasal infiltrates almost completely resolved. 2. New infiltrate in the mid and upper RIGHT lung suggesting active pneumonia. Laboratory Results WBC 10.21 10^3/uL (3.29-11.43) 09/15/24 08:31 RBC 3.91 10^6/uL (3.85-5.65) 09/15/24 08:31 Hgb 9.40 g/dL (11.27-16.99) L 09/15/24 08: Hct 32.2 % (36-47) L 09/15/24 08:31 MCV 82.4 fl (85-98) L 09/15/24 08:31 MCH 24.0 pg (27-33) L 09/15/24 08: MCHC 29.2 g/dL (30-55) L 09/15/24 08:31 RDW 15.9 % (12.1-15.1) H 09/15/24 08:31 Plt Count 198 10^3/cmm (157-399) 09/15/24 08:31 MPV 10.4 fL (7.4-10.4) 09/15/24 08:31 Neut % (Auto) 84.8 % 09/15/24 08:31 Lymph % (Auto) 8.5 % 09/15/24 08:31 [place] % (Auto) 4.9 % 09/15/24 08:31 Eos % (Auto) 1.0 % 09/15/24 08: Baso % (Auto) 0.3 % 09/15/24 08:31 Neut # (Auto) 8.66 10^3/uL (1.8-7.7) H 09/15/24 08:31 Lymph # (Auto) 0.9 10^3/uL (0.8-4.8) 09/15/24 08:31 [place] # (Auto) 0.5 10^3/uL (0.2-0.9) 09/15/24 08:31 Eos # (Auto) 0.1 10^3/uL (0.0-0.8) 09/15/24 08:31 Baso # (Auto) 0.0 10^3/uL (0.0-0.1) 09/15/24 08: Nucleated RBC % (auto) 0 % 09/15/24 08: Nucleated RBCs # 0.0 /100WBC 09/15/24 08: PT 16.10 SECONDS (12.1-14.9) H 09/15/24 08:31 INR 1.21 (0.8-1.2) H 09/15/24 08:31 Sodium 141 mmol/L (136-145) 09/15/24 08:31 Potassium 3.6 mmol/L (3.5-5.1) 09/15/24 08:31 Chloride 107 mmol/L (98-107) 09/15/24 08:31 Carbon Dioxide 21 mmol/L (22-29) L 09/15/24 08:31 Anion Gap 16.6 (5-19) 09/15/24 08:31 BUN 15 mg/dL (8-23) 09/15/24 08:31 Creatinine 1.2 mg/dL (0.5-0.9) H 09/15/24 08:31 GFR Calculation Not Reportable 09/15/24 08:31 Glucose 189 mg/dL (65-115) H 09/15/24 08:31 Calculated Osmolality 298 mOsm/kg (285-295) H 09/15/24 08:31 Calcium 8.0 mg/dL (8.5-10.5) L 09/15/24 08:31 Magnesium 2.1 mg/dL (1.7-2.3) 09/15/24 08:31 Total Bilirubin 0.3 mg/dL (0.15-1.2) 09/15/24 08:31 AST 24 U/L (0-32) 09/15/24 08:31 ALT 11 U/L (0-33) 09/15/24 08:31 Alkaline Phosphatase 56 U/L (35-105) 09/15/24 08:31 NT-Pro-B Natriuret Pep 4803 pg/mL (0-450) H 09/15/24 08:31 Total Protein 5.8 g/dL (6.6-8.7) L 09/15/24 08:31 Albumin 3.4 g/dL (3.5-5.2) L 09/15/24 08:31 Globulin 2.4 g/dL (1.3-4.6) 09/15/24 08:31 TSH 6.22 uIU/mL (0.27-4.20) H 09/15/24 08:31 Urine Color Yellow (Yellow) 09/15/24 08:45 Urine Appearance Clear (CLEAR) 09/15/24 08:45 Urine pH 5.5 (5-7) 09/15/24 08:45 Ur Specific [place] 1.030 (1.005-1.030) 09/15/24 08:45 Urine Protein 2+ (Negative) A 09/15/24 08:45 Urine Glucose (UA) 3+ (Normal) H 09/15/24 08:45 Urine Ketones Negative (Negative) 09/15/24 08:45 Urine Blood 1+ (Negative) A 09/15/24 08:45 Urine Nitrate Negative (Negative) 09/15/24 08:45 Urine Bilirubin Negative (Negative) 09/15/24 08:45 Urine Urobilinogen 0.2 mg/dL (Negative) 09/15/24 08:45 Ur Leukocyte Esterase Negative (Negative) 09/15/24 08:45 Urine RBC 5-10 /hpf (0-2) H 09/15/24 08:45 Urine WBC 0-4 /hpf (0-5) H 09/15/24 08:45 Ur Squamous Epith Cells 0-4 /hpf (0-5) H 09/15/24 08:45 Amorphous Sediment Not Reportable 09/15/24 08:45 Urine Bacteria Trace /hpf (NONE) 09/15/24 08:45 Hyaline Casts 0-4 /lpf H 09/15/24 08:45 Coarse Granular Casts 0-4 /lpf H 09/15/24 08:45 Urine Mucus Trace /hpf 09/15/24 08:45 Urine Yeast 3+ /hpf H 09/15/24 08:45 Coronavirus (PCR) Negative (Negative) 09/15/24 08:52 Influenza A (PCR) Negative (Negative) 09/15/24 08:52 Influenza Type B (PCR) Negative (Negative) 09/15/24 08:52 RSV (PCR) Negative (Negative) 09/15/24 08:52 All radiology interpretation(s) finalized by discharge Discharge Plan Discharge Condition: Stable Prescriptions: No Action isosorbide dinitrate 20 mg tablet 20 mg PO TID Hold Instructions: Resume on 10/04/24. hold until you see PMD sertraline 50 mg tablet 50 mg PO DAILY Eliquis 5 mg tablet 5 mg PO BID aspirin 81 mg Tablet,Delayed Release (Dr/Ec) 81 mg PO DAILY folic acid 1 mg Tablet 1 mg PO DAILY levothyroxine 100 mcg tablet 100 mcg PO DAILY Jardiance 25 mg tablet 25 mg PO DAILY pantoprazole [Protonix] 40 mg tablet,delayed release (DR/EC) 40 mg PO BID 30 Days Qty: 60 0RF sucralfate [Carafate] 1 gram tablet 1 g PO BID 28 Days Qty: 56 0RF levofloxacin 750 mg tablet 750 mg PO DAILY 5 Days Qty: 5 0RF furosemide 40 mg tablet 20 mg PO DAILY pantoprazole 20 mg tablet,delayed release (DR/EC) 20 mg PO BID Coding Level of Care Code ED Supervisor [facility] [facility] Fwd Related Data Home Medications Medication Instructions Recorded Confirmed apixaban 5 mg tablet (Eliquis) 5 mg PO BID 11/28/23 09/15/24 aspirin 81 mg tablet,delayed 81 mg PO DAILY 11/28/23 09/15/24 release folic acid 1 mg tablet 1 mg PO DAILY 11/28/23 09/15/24 isosorbide dinitrate 20 mg tablet 20 mg PO TID 11/28/23 09/15/24 sertraline 50 mg tablet 50 mg PO DAILY 11/28/23 09/15/24 empagliflozin 25 mg tablet 25 mg PO DAILY 09/10/24 09/15/24 (Jardiance) levothyroxine 100 mcg tablet 100 mcg PO DAILY 09/10/24 09/15/24 furosemide 40 mg tablet 20 mg PO DAILY 09/15/24 09/15/24 pantoprazole 20 mg tablet,delayed 20 mg PO BID 09/15/24 09/15/24 release Previous Rx's Medication Instructions Recorded levofloxacin 750 mg tablet 750 mg PO DAILY 5 days #5 tabs 09/13/24 pantoprazole 40 mg tablet,delayed 40 mg PO BID 30 days #60 tabs 09/13/24 release (Protonix) sucralfate 1 gram tablet (Carafate) 1 g PO BID 4 weeks #56 tabs 09/13/24 Allergies Allergy/AdvReac Type Severity Reaction Status Date / Time heparin Allergy Unknown Verified 11/28/23 06:29 Sulfa (Sulfonamide Allergy Unknown Verified 11/28/23 06:29 Antibiotics)
[2024-09-15 08:49] LABS: INR 1.21 (0.8-1.2)
[2024-09-15 08:53] LABS: Bilirubin Urine Negative (Negative); Blood Urine 1+ (Negative); Glucose Urine UA 3+ (Normal); Ketones Urine Negative (Negative); Leukocyte Esterase Urine Negative (Negative); Nitrate Urine Negative (Negative); Protein Urine 2+ (Negative); Urine Appearance Clear (CLEAR); Urine Color Yellow (Yellow); Urobilinogen Urine 0.2 mg/dL (Negative); pH Urine 5.5 (5-7)
[2024-09-15 08:55] LABS: Add Urine Microscopic? YES
[2024-09-15 09:06] LABS: Alanine Aminotransferase 11 U/L (0-33); Albumin Level 3.4 g/dL (3.5-5.2); Alkaline Phosphatase 56 U/L (35-105); Anion Gap 16.6 (5-19); Aspartate Amino Transferase 24 U/L (0-32); Blood Urea Nitrogen 15 mg/dL (8-23); Carbon Dioxide 21 mmol/L (22-29); Chloride 107 mmol/L (98-107); Creatinine Clr Calc Pharmacy 37.4788; Globulin 2.4 g/dL (1.3-4.6); Glucose 189 mg/dL (65-115); Magnesium 2.1 mg/dL (1.7-2.3); NT Pro B Type Natriuretic Pept 4803 pg/mL (0-450); Osmolality Calculated 298 mOsm/kg (285-295); Potassium 3.6 mmol/L (3.5-5.1); Sodium 141 mmol/L (136-145); Thyroid Stimulating Hormone 6.22 uIU/mL (0.27-4.20); Total Bilirubin 0.3 mg/dL (0.15-1.2); Total Protein 5.8 g/dL (6.6-8.7)
[2024-09-15 09:23] LABS: UA Manual Slide Review YES; UA Slide Review UA Slide Review Perf
[2024-09-15 09:25] LABS: Add Urine Culture? Yes; Bacteria Urine TRACE /hpf; Coarse Granular Casts Urine 0-4 /lpf; Hyaline Casts Urine 0-4 /lpf; Mucus Urine TRACE /hpf; Squamous Epithelial Cell Urine 0-4 /hpf (0-5); WBC Urine 0-4 /hpf (0-5)
[2024-09-15] MEDS: cefTRIAXone 1,000 mg SDV 1000 MG IVP (09:29)
[2024-09-15] MEDS: AZITHROMYCIN ADD-Vantage 500 MG in 0.9% NaCl ADD-Vantage 250 ML 250 MG IV (09:34)
[2024-09-15 09:49] LABS: Covid PCR NEGATIVE (Negative); Influenza A NEGATIVE (Negative); Influenza B NEGATIVE (Negative); Respiratory Syncytial Virus Ce NEGATIVE (Negative)
--- NOTE | 2024-09-15 10:08 | PC.PHAR ---
Patient has a bag of medications with her . She does have a bottle of Atorvastatin fill date is 11/18/23 1/2 tab daily. not sure if patient still takes ,there is a lot left in the bottle . She also has Potassium Chloride 10mec filled 05/14/24 #90 . Not sure if she is taking that. Patient has a new bottle of Levofloxacin 750 filled 09/13/24 #5 and there is still 5 in the bottle .
[2024-09-15] MEDS: FUROsemide 10 mg/mL SDV 10mL 60 MG IVP (10:19)
[2024-09-15 11:32] LABS: Creatine Phosphokinase 200 U/L (26-192)
--- NOTE | 2024-09-15 12:06 | P.HP_ITS ---
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 On discharge 2 days ago PT recommending SNF or home health but patient declined and preferred to return home. On my evaluation today she is unable to communicate very well but is able to tell me that she is too weak to care for herself and her is not able to care for her either. She denies pain, chest pain, shortness of breath, vomiting, diarrhea. She reports a cough but states that it has not been any worse than it was last week. She states she is now amenable to being placed at a nursing facility. Per chart review it appears that she was admitted to [facility] facility directly from the ED November 2023, and had stayed there prior to this as well. At that time she returned home after her 's health issues had improved. Review of Systems 2 Const: Denies: fever(s) or chills Card: Denies: chest pain, edema, lightheadedness or orthopnea Resp: Denies: dyspnea GI: Denies: vomiting : Denies: difficulty voiding Medications/Allergies Home Medications Medication Instructions Recorded Confirmed Last Taken Type apixaban 5 mg tablet (Eliquis) 5 mg PO BID 11/28/23 09/15/24 Unknown History aspirin 81 mg tablet,delayed 81 mg PO DAILY 11/28/23 09/15/24 11/27/23 History release folic acid 1 mg tablet 1 mg PO DAILY 11/28/23 09/15/24 11/27/23 History isosorbide dinitrate 20 mg tablet 20 mg PO TID 11/28/23 09/15/24 11/27/23 History sertraline 50 mg tablet 50 mg PO DAILY 11/28/23 09/15/24 11/27/23 History empagliflozin 25 mg tablet 25 mg PO DAILY 09/10/24 09/15/24 Unknown History (Jardiance) levothyroxine 100 mcg tablet 100 mcg PO DAILY 09/10/24 09/15/24 Unknown History levofloxacin 750 mg tablet 750 mg PO DAILY 5 days #5 tabs 09/13/24 09/15/24 Unknown Rx pantoprazole 40 mg tablet,delayed 40 mg PO BID 30 days #60 tabs 09/13/24 09/15/24 Unknown Rx release (Protonix) sucralfate 1 gram tablet (Carafate) 1 g PO BID 4 weeks #56 tabs 09/13/24 09/15/24 Unknown Rx cyanocobalamin (vitamin B-12) 500 250 mcg PO DAILY 09/15/24 09/15/24 Unknown History mcg tablet (B-12 DOTS) furosemide 40 mg tablet 20 mg PO DAILY 09/15/24 09/15/24 Unknown History nitroglycerin 0.4 mg sublingual 0.4 mg sublingual Q5M PRN Chest 09/15/24 09/15/24 Unknown History tablet Pain pantoprazole 20 mg tablet,delayed 20 mg PO BID 09/15/24 09/15/24 Unknown History release Allergies Allergy/AdvReac Type Severity Reaction Status Date / Time heparin (porcine) Allergy Unknown Unverified 09/15/24 16:04 oxycodone Allergy Unknown Unverified 09/15/24 16:04 tramadol Allergy Unknown Unverified 09/15/24 16:04 heparin Allergy Unknown Verified 09/15/24 16:04 Sulfa (Sulfonamide Allergy Unknown Verified 09/15/24 16:04 Antibiotics) Augmentin Allergy Unknown Uncoded 09/15/24 16:04 PFSH Acute 2 PFSH: Medical History History of CAD (coronary artery disease) Hyperlipidemia History of hypertension Stenosis of right carotid artery History of CVA (cerebrovascular accident) History of pulmonary embolism History of DVT (deep vein thrombosis) History of atrial fibrillation History of type 2 diabetes mellitus Surgical History History of cholecystectomy History of coronary artery bypass graft S/P IVC filter Family History Other CAD (coronary artery disease) Diabetes Hyperlipidemia Hypertension Social History (System 09/15/24 @ 16:04 by Lashell Verma) Smoking and tobacco/nicotine status: never used tobacco/nicotine Alcohol intake: never Substance/Drug Use: never Vitals/I&O/Wt Last Vital Signs Temp 99.5 F 09/15/24 08:05 Pulse 61 09/15/24 11:24 Resp 16 09/15/24 08:05 BP 146/73 09/15/24 11:24 Pulse Ox 95 09/15/24 11:24 O2 Del Method Room Air 09/15/24 09:34 09/14/24 09/15/24 09/15/24 22:59 06:59 14:59 Intake Total 250 / 250 Balance 250 / 250 Weight last 48 hrs Weight 72.575 kg Physical Exam 2 Const: COMMON NORMALS: no acute distress, patient oriented x3 and alert G ENERAL APPEARANCE: frail appearing NUTRITIONAL APPEARANCE: overweight HENMT: COMMON NORMALS: normocephalic and atraumatic Eye: COMMON NORMALS: EOMs intact bilaterally and conjunctivae normal Resp: COMMON NORMALS: normal respiratory effort, No use of accessory muscles and clear to auscultation bilaterally EFFORT & INSPECTION: Yes symmetric chest movement, No tachypneic and No respiratory distress AUSCULTATION: no crackles Cardio: COMMON NORMALS: regular rate and regular rhythm HEART SOUNDS: M urmur heart sound present (3/6 systolic, loudest over RUSB) GI: COMMON NORMALS: Normal to inspection, nondistended, normoactive bowel sounds present, Soft to palpation and non-tender Extremity: OTHER: No lower extremity edema Data 09/16/24 04:55 09/16/24 04:55 Micro: Microbiology 09/15/24 09:27 Blood Culture - Preliminary Blood SPECIMEN COLLECTED 09/15/24 09:22 Blood Culture - Preliminary Blood SPECIMEN COLLECTED A&P Assessment and plan (1) Weakness generalized: (2) Lung infiltrate: Plan Emma Kraus is a 79 year old female with past medical history of CAD status post CABG, 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 ED course: Initially plan was to transfer her to a nursing facility directly from the ED, however chest x-ray was obtained which showed new infiltrates in the right lung so decision was made to admit for further workup. Her temperature is mildly elevated 99.5, however she has no leukocytosis, flu/COVID/RSV returned negative. Her BNP was elevated above baseline, however she does have CKD. She did have an JONNA during her previous admission, however creatinine is currently stable. Urinalysis appeared noninfectious but did show yeast, patient asymptomatic. She received Rocephin, azithromycin, and Lasix in the ED. She is on GDMT at home and has a history of CAD, CABG, and CHF, however has not had a TTE recently. #New CXR infiltrates #Atypical pneumonia vs aspiration pneumonitis vs pulmonary edema #C/f aspiration ? Will obtain an updated TTE ? Patient was discharged on Levaquin 2 days ago (09/13) ? BNP elevated however unclear if this is secondary to CKD ? Will hold off on respiratory panel at this time given no leukocytosis, fever, or hypoxia - will cont. Levaquin and d/c azith and CTX from ED - Ordered MBS #Debility - PT/OT, pt amenable to placement this time - ordered orthostatics #CHF #CAD status post CABG ?Significant systolic murmur on exam, unknown last TTE ? Ordered TTE Cardiac meds: ?Continue aspirin daily ?Isosorbide dinitrate 20 mg 3 times daily ?Jardiance 25 mg daily - okay to continue given no JONNA, GFR 55 ?consider beta-becky/ARB or ARNi if EF reduced #History of DVT/PE #Atrial fibrillation ?Continue home Eliquis ?CHADVASC score 8 ?Unable to access prior cardiology notes #Candidiasis, likely vulvovaginal ? Likely secondary to her recent antibiotics ?Denies dysuria or vulvovaginal itching - Ordered diflucan 150mg x1 #Hypothyroidism ? Continue home levothyroxine 100 mcg daily ? TSH mildly elevated to 6 on admission, likely secondary to recent illness ?Ordered T4 CODE STATUS: Full DVT prophylaxis: Continue home Eliquis (hx of DVT/PE/Afib) Pt's preference for placement is [facility] if possible Coding Level of Care Code 20668 Diagnoses Weakness generalized R53.1 Lung infiltrate R91.8 Documented by User: Tyler Adkins MD 09/16/24 10:52 Providers/Chief Complaint 2 Chief Complaint: weakness Medications/Allergies Home Medications Medication Instructions Recorded Confirmed Last Taken Type apixaban 5 mg tablet (Eliquis) 5 mg PO BID 11/28/23 09/15/24 Unknown History aspirin 81 mg tablet,delayed 81 mg PO DAILY 11/28/23 09/15/24 11/27/23 History release folic acid 1 mg tablet 1 mg PO DAILY 11/28/23 09/15/24 11/27/23 History isosorbide dinitrate 20 mg tablet 20 mg PO TID 11/28/23 09/15/24 11/27/23 History sertraline 50 mg tablet 50 mg PO DAILY 11/28/23 09/15/24 11/27/23 History empagliflozin 25 mg tablet 25 mg PO DAILY 09/10/24 09/15/24 Unknown History (Jardiance) levothyroxine 100 mcg tablet 100 mcg PO DAILY 09/10/24 09/15/24 Unknown History levofloxacin 750 mg tablet 750 mg PO DAILY 5 days #5 tabs 09/13/24 09/15/24 Unknown Rx pantoprazole 40 mg tablet,delayed 40 mg PO BID 30 days #60 tabs 09/13/24 09/15/24 Unknown Rx release (Protonix) sucralfate 1 gram tablet (Carafate) 1 g PO BID 4 weeks #56 tabs 09/13/24 09/15/24 Unknown Rx cyanocobalamin (vitamin B-12) 500 250 mcg PO DAILY 09/15/24 09/15/24 Unknown History mcg tablet (B-12 DOTS) furosemide 40 mg tablet 20 mg PO DAILY 09/15/24 09/15/24 Unknown History nitroglycerin 0.4 mg sublingual 0.4 mg sublingual Q5M PRN Chest 09/15/24 09/15/24 Unknown History tablet Pain pantoprazole 20 mg tablet,delayed 20 mg PO BID 09/15/24 09/15/24 Unknown History release Allergies Allergy/AdvReac Type Severity Reaction Status Date / Time heparin (porcine) Allergy Unknown Unverified 09/15/24 16:04 oxycodone Allergy Unknown Unverified 09/15/24 16:04 tramadol Allergy Unknown Unverified 09/15/24 16:04 heparin Allergy Unknown Verified 09/15/24 16:04 Sulfa (Sulfonamide Allergy Unknown Verified 09/15/24 16:04 Antibiotics) Augmentin Allergy Unknown Uncoded 09/15/24 16:04 PFSH Acute 2 PFSH: Medical History History of CAD (coronary artery disease) Hyperlipidemia History of hypertension Stenosis of right carotid artery History of CVA (cerebrovascular accident) History of pulmonary embolism History of DVT (deep vein thrombosis) History of atrial fibrillation History of type 2 diabetes mellitus Surgical History History of cholecystectomy History of coronary artery bypass graft S/P IVC filter Family History Other CAD (coronary artery disease) Diabetes Hyperlipidemia Hypertension Social History (System 09/15/24 @ 16:04 by Lashell Verma) Smoking and tobacco/nicotine status: never used tobacco/nicotine Alcohol intake: never Substance/Drug Use: never Data 09/16/24 04:55 09/16/24 04:55 A&P Assessment and plan (1) Weakness generalized: (2) Lung infiltrate: Attestations 2 Medical Necessity Statement*: Place in observation for additional assessment management of worsening/new infiltrate with recent pneumonia, assessment for aspiration pneumonia, complicated by generalized weakness, with difficult social situation and inadequate social support, with unable to care for her at home. Other Attestations: Patient seen and examined independently and I have reviewed and agree with the findings, assessment and plan by the medical radiation tech, Dr. Cervantes. Patient is a pleasant 79-year-old lady with recent hospitalization After treatment, discharged on 09/13, acute encephalopathy, pneumonia, UTI, hypoxia requiring oxygen, without a medical history including CAD, CABG, CVA with residual deficits, carotid artery disease, CKD, A-fib, DM 2, history of VTE on anticoagulation. During last hospitalization she was assessed by physical therapy and for postdischarge rehabilitation were discussed with rehabilitation at SNF being offered to her, however, she had declined. She returned to the hospital with generalized weakness unable to manage at home, although is also found to have new right lung, some perihilar left lung patchy infiltrates possibly secondary to acute pneumonia, possible atypical pneumonia, aspiration pneumonia versus pulm edema. Will continue with treatment with Levaquin at this time for pneumonia, additional assessment for dysphagia with modified barium swallow study. Noted elevated NT proBNP, although in the setting of CKD, although worse than usual, 4203. Assess TTE. Received a dose of diuretic. Will hold off further diuretic for now pending reassessment. Does not look significantly fluid overloaded on exam. Follow-up for possible valvular heart disease on echo. Reassess oxygenation. Reviewed vitals, CBC, INR, CMP, NT proBNP, CK, TSH. Obtain free T4. Reviewed UA, coronavirus, close, RSV PCR, chest x-ray, ER provider note, discussed with ER provider. Monitor for risk of electro deficiency, renal dysfunction with IV Lasix. Risk of fluid overload with IV albumin. Reassess volume status. and High MDM includes amount and/or complexity of data reviewed/ordered [ resulted lab(s)/test(s), ordered lab(s)/test(s) and other healthcare professional discussion] and described risk of complication, morbidity or mortality of management as documented Diagnoses Weakness generalized R53.1 Lung infiltrate R91.8
[2024-09-15] MEDS: levoFLOXacin 750 mg Tablet PO (12:22)
[2024-09-15] MEDS: albumin 25 G/100 ML BAG 60 G IV (12:23)
--- NOTE | 2024-09-15 13:47 | USCV_ITS ---
Emma Kraus Age: 79 Gender: F : 1945 Exam Date: 09/15/2024 14:40 Ordering Phys: Tyler Adkins MD Technologist: Exam [place] [facility] [place] Indication: as new murmur BP: 133 / 84 HR: 72 Rhythm: Sinus Technical Quality: Adequate MEASUREMENTS (Male / Female) Normal Values 2D ECHO LV Diastolic Diameter PLAX 5.4 cm 4.2 - 5.9 / 3.9 - 5.3 cm IVS Diastolic Thickness 0.9 cm 0.6 - 1.0 / 0.6 - 0.9 cm IVS Systolic Thickness 1.5 cm LVPW Diastolic Thickness 1.1 cm 0.6 - 1.0 / 0.6 - 0.9 cm LVPW Systolic Thickness 1.3 cm LV Ejection Fraction 2D Teich 54.0 % LV Ejection Fraction MOD 4C 72.8 % LV Ejection Fraction MOD 2C 64.9 % LV Ejection Fraction 2C AL 65.1 % LA Diameter 2.2 cm RA Systolic Volume 4C AL 51.9 ml RA Systolic Volume 4C MOD 49.5 ml IVC Diameter 1.6 cm M-MODE LA Ao Ratio MM 1.4 AV Cusp Separation MM 1.5 cm DOPPLER AV Peak Velocity 332.0 cm/s LVOT Peak Velocity 80.0 cm/s MV Area PHT 4.0 cm squared Mitral E to A Ratio 1.1 TV Peak Velocity 245.0 cm/s TR Peak Velocity 262.0 cm/s TR Peak Gradient 27.5 mmHg TV Peak E Velocity 89.0 cm/s PV Peak Velocity 82.0 cm/s FINDINGS Left Ventricle Normal left ventricular size, systolic function and wall thickness, with no regional wall motion abnormalities. Left ventricular ejection fraction is estimated at 55 %. Grade II/IV diastolic dysfunction, moderately elevated filling pressures. Right Ventricle The right ventricle is normal in size and function. Right Atrium The right atrium is normal in size. Left Atrium Moderately increased left atrial size. Mitral Valve Moderately thickened mitral valve. Moderate mitral annular calcification. No mitral valve stenosis. Moderate mitral valve regurgitation. Aortic Valve Severe aortic valve calcification. Moderate aortic valve stenosis, mean gradient 21.5 mmHg, mild aortic valve regurgitation. Tricuspid Valve Mild tricuspid valve regurgitation. Pulmonic Valve Structurally normal pulmonic valve without significant stenosis. There is no pulmonic regurgitation. Pericardium Normal pericardium without effusion. Aorta Normal ascending aorta dimension. IVC The inferior vena cava appears normal. CONCLUSIONS Normal left ventricular size, systolic function and wall thickness, with no regional wall motion abnormalities. Left ventricular ejection fraction is estimated at 55 %. Grade II/IV diastolic dysfunction, moderately elevated filling pressures. Moderately increased left atrial size. Moderately thickened mitral valve. Moderate mitral annular calcification. No mitral valve stenosis. Moderate mitral valve regurgitation. Severe aortic valve calcification. Moderate aortic valve stenosis, mean gradient 21.5 mmHg, mild aortic valve regurgitation. Mild tricuspid valve regurgitation. There is no pericardial effusion. Right atrial pressure is around 15 mm of mercury. Dallas Henderson MD (Electronically Signed) Final Date: 15 September 2024 15:49 S
[2024-09-15] MEDS: isosorbide dinitrate 20 mg Tablet PO ×2 (15:35→19:54)
[2024-09-15] MEDS: fluconazole 100 mg Tablet 150 MG PO (15:35)
[2024-09-15] MEDS: sucralfate 1 gm Tablet PO (18:08)
[2024-09-15] MEDS: pantoprazole DR 40 mg Tablet PO (18:08)
[2024-09-15] MEDS: apixaban 5 mg Tablet PO (18:08)
[2024-09-16 04:00] VITALS: BP 138/77; PULSE 52; RESP 15; TEMP 36.6; O2SAT 95
[2024-09-16 05:02] LABS: Basophils % 0.3 %; Eosinophils # 0.1 10^3/uL (0.0-0.8); Eosinophils % 1.9 %; Hematocrit 28.9 % (36-47); Lymphocytes # 1.5 10^3/uL (0.8-4.8); Mean Corpuscular HGB Conc 29.8 g/dL (30-55); Mean Corpuscular Hemoglobin 24.4 pg (27-33); Mean Corpuscular Volume 82.1 fl (85-98); Mean Platelet Volume 10.1 fL (7.4-10.4); Monocytes # 0.4 10^3/uL (0.2-0.9); Monocytes % 5.4 %; Neutrophils # 4.73 10^3/uL (1.8-7.7); Neutrophils % 69.2 %; Nucleated Red Blood Cells % 0.3 %; Platelet Count 179 10^3/cmm (157-399); Red Blood Count 3.52 10^6/uL (3.85-5.65); Red Cell Distribution Width 15.6 % (12.1-15.1); White Blood Count 6.83 10^3/uL (3.29-11.43)
[2024-09-16 05:24] LABS: Anion Gap 16.4 (5-19); Blood Urea Nitrogen 15 mg/dL (8-23); Calcium 8.3 mg/dL (8.5-10.5); Carbon Dioxide 25 mmol/L (22-29); Chloride 102 mmol/L (98-107); Creatinine Clr Calc Pharmacy 37.4788; Glucose 116 mg/dL (65-115); Osmolality Calculated 292 mOsm/kg (285-295); Potassium 3.4 mmol/L (3.5-5.1); Sodium 140 mmol/L (136-145)
[2024-09-16 05:35] LABS: T4 Total 5.6 mcg/dL (5.1-11.9)
[2024-09-16 07:50] VITALS: BP 150/57; PULSE 48; RESP 16; TEMP 36.7; O2SAT 93
[2024-09-16] MEDS: apixaban 5 mg Tablet PO (08:08)
[2024-09-16] MEDS: sucralfate 1 gm Tablet PO (08:09)
[2024-09-16] MEDS: folic acid 1 mg Tablet PO (08:09)
[2024-09-16] MEDS: isosorbide dinitrate 20 mg Tablet PO (08:09)
[2024-09-16] MEDS: aspirin 81 mg EC Tablet PO (08:09)
[2024-09-16] MEDS: pantoprazole DR 40 mg Tablet PO (08:09)
[2024-09-16] MEDS: levothyroxine 100 mcg Tablet PO (08:09)
[2024-09-16] MEDS: sertraline 50 mg Tablet PO (08:10)
--- NOTE | 2024-09-16 09:05 | XRR_ITS ---
PROCEDURE INFORMATION: Exam: XR Right Ankle Exam date and time: 09/16/2024 9:23 AM Age: 79 years old Clinical indication: Pain; Ankle; Right; Additional info: Tenderness lateral calcaneus TECHNIQUE: Imaging protocol: Radiologic exam of the right ankle. Views: 1 or 2 views. COMPARISON: CR XR calcaneus RT min 2V [id number] 09/16/2024 9:22 AM FINDINGS: Bones/joints: Negative for acute fractures. Normal joint alignment. Large osseous calcaneal spur. Negative for bone erosion. Negative for aggressive osteolytic lesion. Soft tissues: Normal. Vasculature: Scattered vascular calcifications. XR/XR ankle RT 2V [id number] IMPRESSION: Negative for acute pathology.
--- NOTE | 2024-09-16 09:05 | XR_ITS ---
WS: [email or web address] Exam: XR calcaneus RT min 2V [id number] Date/Time of Exam: 09/16/2024 9:05 AM Reason For Exam: tenderness lateral calcaneus There is a probable nondisplaced hairline fracture along the posterior lateral wall of the calcaneus noted on the axial view. No other fractures. Calcaneal spurs are noted. No soft tissue foreign bodies . Degenerative changes in the mid and hindfoot joints. IMPRESSION1. Probable nondisplaced hairline cortical fracture along the posterior lateral wall of the calcaneus seen on the axial view only.
--- NOTE | 2024-09-16 09:05 | XR_ITS ---
WS: [email or web address] Exam: XR ankle RT 2V [id number] Date/Time of Exam: 09/16/2024 9:05 AM Reason For Exam: tenderness lateral calcaneus No fracture noted. Mild degenerative change of the ankle mortise. Degenerative changes in the mid and hindfoot joints. Prominent heel spurs. Extensive vascular calcifications about the ankle and visuali zed foot. No soft tissue foreign bodies. IMPRESSION1. Degenerative changes as above.
--- NOTE | 2024-09-16 09:34 | XR_ITS ---
WS: [email or web address] Exam: XR ankle RT 2V [id number] Date/Time of Exam: 09/16/2024 9:05 AM Reason For Exam: tenderness lateral calcaneus No fracture noted. Mild degenerative change of the ankle mortise. Degenerative changes in the mid and hindfoot joints. Prominent heel spurs. Extensive vascular calcifications about the ankle and visuali zed foot. No soft tissue foreign bodies. IMPRESSION1. Degenerative changes as above.
[2024-09-16 11:28] VITALS: BP 141/58; PULSE 50; RESP 16; TEMP 36.6; O2SAT 93
--- NOTE | 2024-09-16 12:41 | PC.NURSE ---
Daughter, Penny advised that pt will be discharged to [facility] this afternoon.
--- NOTE | 2024-09-16 12:54 | PC.CHAP ---
Pastoral Care Encounter/Spiritual Assessment Type of Contact [] Declined motor scooter mechanic visit [] Patient/Family/Request visit [] Outpatient visit [] Follow-up visit [] Physician referral [] Code/Alert [] Routine visit [] Staff referral [] Actively dying [x] Patient sleeping [] Family support [] [] Out of room [] Palliative care [] [] Receiving care in room [] Pre-surgical visit [] Trauma [] Long length of stay [] ICU visit [] Other: Relational/Emotional Strength [] Patient feels connected with others/family/visitors/staff [] Distress [] Loneliness/isolation [] Abandonment Spirituality of Patient [] Person of Carlee [] Attends Uatsdin of their Carlee [] Believes in Prayer [] Reads Bible or Spiritism materials [] There are Spiritual issues to be addressed [employer] Choir Director Interventions [] Prayer [] Active listening [] Non-anxious presence [] Spiritual/emotional support [] Crisis/trauma care [] Spiritual counseling [] Bereavement support [] Provided bereavement packet [] Provided Bible/devotional materials [] Provided toy/stuffed animal, coloring book to patient or family member [] Provided Communion [] Anointing/Horicon [] Salvation [] Completed spiritual assessment [] Other: Impact on Illness or Injury [] Angry [] Fearful [] Anxious [] Often cries [] Exhaustion [] Unable to work [] Unable to attend evangelical [] Unable to walk/stand [] Unable to read [] Unable to drive [] Unable to eat/drink [] Unable to sleep [] Unable to be with family [] Patient intubated [] Other: Summary Time spent with patient
--- NOTE | 2024-09-16 13:42 | PM.DCS ---
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 She had a mildly elevated temperature to 99.5 however with no leukocytosis, flu/COVID/RSV returned negative. She did have an JONNA from previous admission, however kidney function now remained stable. Urinalysis appeared noninfectious but did show yeast so patient was given 1 dose of Diflucan. She received Rocephin, azithromycin, and Lasix in the ED. She is on GDMT at home and has a history of CAD, CABG, and CHF, with no recent TTE so we obtained repeat which showed an EF of 55%, grade 2 diastolic dysfunction, moderate mitral valve regurgitation and moderate aortic valve stenosis. Cardiology follow-up recommended in light of these results. She did complain of right ankle tenderness so x-ray was obtained which showed a small hairline calcaneus fracture. Patient will be discharged with a cam boot to wear when weightbearing. We ordered an MBS given her new infiltrated and risk for possible aspiration given her weakness and mobility issues. Recommend continuing course of Levaquin after discharge. Patient accepted to SNF and discharged in stable condition without any new oxygen requirement. Physical Exam Const: COMMON NORMALS: no acute distress and patient oriented x3 GENERAL APPEARANCE: cooperative and comfortable NUTRITIONAL APPEARANCE: overweight HENMT: COMMON NORMALS: normocephalic and atraumatic HEAD & SCALP: normocephalic and atraumatic Eye: COMMON NORMALS: EOMs intact bilaterally and conjunctivae normal CONJUNCTIVA: Yes conjunctivae normal Resp: COMMON NORMALS: normal respiratory effort and clear to auscultation bilaterally AUSCULTATION: clear to auscultation bilaterally, no crackles and no wheezes Cardio: COMMON NORMALS: regular rate, regular rhythm, S1 normal heart sound present, S2 normal heart sound present and No murmurs present (Cardio) RATE: regular rate RHYTHM: regular rhythm HEART SOUNDS: S1 normal heart sound present and S2 normal heart sound present GI: COMMON NORMALS: Normal to inspection, nondistended, normoactive bowel sounds present, Soft to palpation and non-tender PALPATION: Yes Soft to palpation Extremity: NARRATIVE EXTREMITY EXAM: Pain with squeezing the calcaneus on lateral aspects. No pain to palpation of lateral or medial malleolus. Small 1 cm scab present over the lateral malleolus. Neuro: COMMON NORMALS: patient oriented x3 Discharge Data Studies Completed and Pending Completed Studies During Hospitalization Category Date Time Status XR ankle LT 2V [id number] Routine Exams 09/16/24 09:34 Completed XR calcaneus RT min 2V [id number] Routine Exams 09/16/24 09:05 Completed XR chest 1V portable [id number] Stat Exams 09/15/24 08:09 Completed CV. echo complete* [id number] Routine Ultrasound 09/15/24 13:47 Completed Pending at discharge Category Date Time Status XR ankle RT 2V [id number] Routine Exams 09/16/24 09:05 Taken Basic Metabolic Panel AM LABS Lab 09/17/24 04:00 Ordered Basic Metabolic Panel AM LABS Lab 09/18/24 04:00 Ordered Blood Culture Stat Lab 09/15/24 09:27 Results Complete Blood Count w/Auto AM LABS Lab 09/17/24 04:00 Ordered Complete Blood Count w/Auto AM LABS Lab 09/18/24 04:00 Ordered Urine Culture Stat Lab 09/15/24 08:45 Results Radiology Impressions Chest X-Ray 09/15/24 08:09 IMPRESSION: 1. Previously noted bibasal infiltrates almost completely resolved. 2. New infiltrate in the mid and upper RIGHT lung suggesting active pneumonia. Laboratory Results WBC 6.83 10^3/uL (3.29-11.43) 09/16/24 04:55 RBC 3.52 10^6/uL (3.85-5.65) L 09/16/24 04:55 Hgb 8.60 g/dL (11.27-16.99) L 09/16/24 04:55 Hct 28.9 % (36-47) L 09/16/24 04:55 MCV 82.1 fl (85-98) L 09/16/24 04:55 MCH 24.4 pg (27-33) L 09/16/24 04:55 MCHC 29.8 g/dL (30-55) L 09/16/24 04:55 RDW 15.6 % (12.1-15.1) H 09/16/24 04:55 Plt Count 179 10^3/cmm (157-399) 09/16/24 04:55 MPV 10.1 fL (7.4-10.4) 09/16/24 04:55 Neut % (Auto) 69.2 % 09/16/24 04:55 Lymph % (Auto) 22.0 % 09/16/24 04:55 [place] % (Auto) 5.4 % 09/16/24 04:55 Eos % (Auto) 1.9 % 09/16/24 04:55 Baso % (Auto) 0.3 % 09/16/24 04:55 Neut # (Auto) 4.73 10^3/uL (1.8-7.7) 09/16/24 04:55 Lymph # (Auto) 1.5 10^3/uL (0.8-4.8) 09/16/24 04:55 Fallon # (Auto) 0.4 10^3/uL (0.2-0.9) 09/16/24 04:55 Eos # (Auto) 0.1 10^3/uL (0.0-0.8) 09/16/24 04:55 Baso # (Auto) 0.0 10^3/uL (0.0-0.1) 09/16/24 04:55 Nucleated RBC % (auto) 0.3 % 09/16/24 04:55 Nucleated RBCs # 0.0 /100WBC 09/16/24 04:55 PT 16.10 SECONDS (12.1-14.9) H 09/15/24 08:31 INR 1.21 (0.8-1.2) H 09/15/24 08:31 Sodium 140 mmol/L (136-145) 09/16/24 04:55 Potassium 3.4 mmol/L (3.5-5.1) L 09/16/24 04:55 Chloride 102 mmol/L (98-107) 09/16/24 04:55 Carbon Dioxide 25 mmol/L (22-29) 09/16/24 04:55 Anion Gap 16.4 (5-19) 09/16/24 04:55 BUN 15 mg/dL (8-23) 09/16/24 04:55 Creatinine 1.2 mg/dL (0.5-0.9) H 09/16/24 04:55 GFR Calculation Not Reportable 09/16/24 04:55 Glucose 116 mg/dL (65-115) H 09/16/24 04:55 Calculated Osmolality 292 mOsm/kg (285-295) 09/16/24 04:55 Calcium 8.3 mg/dL (8.5-10.5) L 09/16/24 04:55 Magnesium 2.1 mg/dL (1.7-2.3) 09/15/24 08:31 Total Bilirubin 0.3 mg/dL (0.15-1.2) 09/15/24 08:31 AST 24 U/L (0-32) 09/15/24 08:31 ALT 11 U/L (0-33) 09/15/24 08:31 Alkaline Phosphatase 56 U/L (35-105) 09/15/24 08:31 Creatine Kinase 200 U/L (26-192) H 09/15/24 08:21 NT-Pro-B Natriuret Pep 4803 pg/mL (0-450) H 09/15/24 08:31 Total Protein 5.8 g/dL (6.6-8.7) L 09/15/24 08:31 Albumin 3.4 g/dL (3.5-5.2) L 09/15/24 08:31 Globulin 2.4 g/dL (1.3-4.6) 09/15/24 08:31 TSH 6.22 uIU/mL (0.27-4.20) H 09/15/24 08:31 Thyroxine (T4) 5.6 mcg/dL (5.1-11.9) 09/15/24 08:31 Urine Color Yellow (Yellow) 09/15/24 08:45 Urine Appearance Clear (CLEAR) 09/15/24 08:45 Urine pH 5.5 (5-7) 09/15/24 08:45 Ur Specific [place] 1.030 (1.005-1.030) 09/15/24 08:45 Urine Protein 2+ (Negative) A 09/15/24 08:45 Urine Glucose (UA) 3+ (Normal) H 09/15/24 08:45 Urine Ketones Negative (Negative) 09/15/24 08:45 Urine Blood 1+ (Negative) A 09/15/24 08:45 Urine Nitrate Negative (Negative) 09/15/24 08:45 Urine Bilirubin Negative (Negative) 09/15/24 08:45 Urine Urobilinogen 0.2 mg/dL (Negative) 09/15/24 08:45 Ur Leukocyte Esterase Negative (Negative) 09/15/24 08:45 Urine RBC 5-10 /hpf (0-2) H 09/15/24 08:45 Urine WBC 0-4 /hpf (0-5) H 09/15/24 08:45 Ur Squamous Epith Cells 0-4 /hpf (0-5) H 09/15/24 08:45 Amorphous Sediment Not Reportable 09/15/24 08:45 Urine Bacteria Trace /hpf (NONE) 09/15/24 08:45 Hyaline Casts 0-4 /lpf H 09/15/24 08:45 Coarse Granular Casts 0-4 /lpf H 09/15/24 08:45 Urine Mucus Trace /hpf 09/15/24 08:45 Urine Yeast 3+ /hpf H 09/15/24 08:45 Coronavirus (PCR) Negative (Negative) 09/15/24 08:52 Influenza A (PCR) Negative (Negative) 09/15/24 08:52 Influenza Type B (PCR) Negative (Negative) 09/15/24 08:52 RSV (PCR) Negative (Negative) 09/15/24 08:52 Procedures Performed None Vitals Last Vital Signs Temp 97.9 F 09/16/24 11:28 Pulse 50 L 09/16/24 11:28 Resp 16 09/16/24 11:28 BP 141/58 09/16/24 11:28 Pulse Ox 93 09/16/24 11:28 O2 Del Method Room Air 09/16/24 11:28 Discharge Plan Discharge Patient Disposition: Xfer SNF Condition: Stable Prescriptions: New bisacodyl 5 mg Tablet,Delayed Release (Dr/Ec) 10 mg PO DAILY PRN (Reason: Constipation (see protocol)) Qty: 30 0RF Continued isosorbide dinitrate 20 mg tablet 20 mg PO TID Hold Instructions: Resume on 10/04/24. hold until you see PMD sertraline 50 mg tablet 50 mg PO DAILY Eliquis 5 mg tablet 5 mg PO BID aspirin 81 mg Tablet,Delayed Release (Dr/Ec) 81 mg PO DAILY folic acid 1 mg Tablet 1 mg PO DAILY levothyroxine 100 mcg tablet 100 mcg PO DAILY Jardiance 25 mg tablet 25 mg PO DAILY pantoprazole [Protonix] 40 mg tablet,delayed release (DR/EC) 40 mg PO BID 30 Days Qty: 60 0RF sucralfate [Carafate] 1 gram tablet 1 g PO BID 28 Days Qty: 56 0RF levofloxacin 750 mg tablet 750 mg PO DAILY 5 Days Qty: 5 0RF furosemide 40 mg tablet 20 mg PO DAILY pantoprazole 20 mg tablet,delayed release (DR/EC) 20 mg PO BID cyanocobalamin (vitamin B-12) [B-12 DOTS] 500 mcg Tablet 250 mcg PO DAILY nitroglycerin 0.4 mg Tablet, Sublingual 0.4 mg SUBLINGUAL Q5M PRN (Reason: Chest Pain) Rx Instructions: do not exceed 3 doses per episode Discharge Orders: Discharge Order (Routine); Ordered 09/16/24 Ordered By: Tyler Adkins Other Ambulatory Orders: [place] barium swallow modifd 15860 (Routine) Timeframe: 3 Days Facility: [facility] - Location: Radiology Ordered By: Tyler Adkins Referrals: Your,PCP [Other] - 4-7 days [facility] [Outside] Mahad Smith DPM [Physician] - 2 weeks (Hairline fx calcaneus ) Deborah Urbano FNP [Nurse Practitioner] - 2 weeks (CHF, HFpEF, mitral regurg) Discharge Diet: Cardiac and Diabetic Discharge Activity: Limit activity as instructed and As per PT/OT instructions Patient Instructions: Heart Failure (GEN), Calcaneal Fracture (GEN) Activity Restrictions/Additional Instructions: Please wear CAM boot on the R foot until you see the waistline joiner overlock in clinic. Restorative therapy 2-3 times per week. Fluid restriction 1.5L daily, measure daily weights please. Continue Lasix Finish levofloxacin course. If there is any loss of sensation or pain around joints during this antibiotic course, notify a provider. Follow-up with primary care provider to follow-up resolution of pneumonia. Follow-up with cardiology in 1 to 2 weeks to follow-up CHF and diastolic dysfunction. Seek medical attention if there are any new or worsening symptoms. 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 She had a mildly elevated temperature to 99.5 however with no leukocytosis, flu/COVID/RSV returned negative. She did have an JONNA from previous admission, however kidney function now remained stable. Urinalysis appeared noninfectious but did show yeast so patient was given 1 dose of Diflucan. She received Rocephin, azithromycin, and Lasix in the ED. She is on GDMT at home and has a history of CAD, CABG, and CHF, with no recent TTE so we obtained repeat which showed an EF of 55%, grade 2 diastolic dysfunction, moderate mitral valve regurgitation and moderate aortic valve stenosis. Cardiology follow-up recommended in light of these results. She did complain of right ankle tenderness so x-ray was obtained which showed a small hairline calcaneus fracture. Patient will be discharged with a cam boot to wear when weightbearing. We ordered an MBS given her new infiltrated and risk for possible aspiration given her weakness and mobility issues. Recommend continuing course of Levaquin after discharge. Patient accepted to SNF and discharged in stable condition without any new oxygen requirement. Discharge Plan Discharge Patient Disposition: Xfer SNF Condition: Stable Prescriptions: New bisacodyl 5 mg Tablet,Delayed Release (Dr/Ec) 10 mg PO DAILY PRN (Reason: Constipation (see protocol)) Qty: 30 0RF Continued isosorbide dinitrate 20 mg tablet 20 mg PO TID Hold Instructions: Resume on 10/04/24. hold until you see PMD sertraline 50 mg tablet 50 mg PO DAILY Eliquis 5 mg tablet 5 mg PO BID aspirin 81 mg Tablet,Delayed Release (Dr/Ec) 81 mg PO DAILY folic acid 1 mg Tablet 1 mg PO DAILY levothyroxine 100 mcg tablet 100 mcg PO DAILY Jardiance 25 mg tablet 25 mg PO DAILY pantoprazole [Protonix] 40 mg tablet,delayed release (DR/EC) 40 mg PO BID 30 Days Qty: 60 0RF sucralfate [Carafate] 1 gram tablet 1 g PO BID 28 Days Qty: 56 0RF levofloxacin 750 mg tablet 750 mg PO DAILY 5 Days Qty: 5 0RF furosemide 40 mg tablet 20 mg PO DAILY pantoprazole 20 mg tablet,delayed release (DR/EC) 20 mg PO BID cyanocobalamin (vitamin B-12) [B-12 DOTS] 500 mcg Tablet 250 mcg PO DAILY nitroglycerin 0.4 mg Tablet, Sublingual 0.4 mg SUBLINGUAL Q5M PRN (Reason: Chest Pain) Rx Instructions: do not exceed 3 doses per episode Discharge Orders: Discharge Order (Routine); Ordered 09/16/24 Ordered By: Tyler Adkins Other Ambulatory Orders: [place] barium swallow modifd 42226 (Routine) Timeframe: 3 Days Facility: [facility] - Location: Radiology Ordered By: Tyler Adkins Referrals: Your,PCP [Other] - 4-7 days [facility] [Outside] Mahad Smith DPM [Physician] - 2 weeks (Hairline fx calcaneus ) Deborah Urbano FNP [Nurse Practitioner] - 2 weeks (CHF, HFpEF, mitral regurg) Discharge Diet: Cardiac and Diabetic Discharge Activity: Limit activity as instructed and As per PT/OT instructions Patient Instructions: Heart Failure (GEN), Calcaneal Fracture (GEN) Activity Restrictions/Additional Instructions: Please wear CAM boot on the R foot until you see the waistline joiner overlock in clinic. Restorative therapy 2-3 times per week. Fluid restriction 1.5L daily, measure daily weights please. Continue Lasix Finish levofloxacin course. If there is any loss of sensation or pain around joints during this antibiotic course, notify a provider. Follow-up with primary care provider to follow-up resolution of pneumonia. Follow-up with cardiology in 1 to 2 weeks to follow-up CHF and diastolic dysfunction. Seek medical attention if there are any new or worsening symptoms. Discharge Attestations Time Spent in Discharge Care*: greater than 30 min Quality Metrics Clinical Quality Measures [ No reported AMI, CVA or VTE this stay] Coding Level of Care Code Critical Care >/= 30 minutes Critical care time (in minutes): 40 The high probability of a clinically significant, sudden or life threatening deterioration, as referenced in this documentation, required my full and direct attention, intervention and personal management. The critical care time shown is in addition to time spent performing any reported separately billable procedures and includes the following: [x] Data and vital sign review and interpretation [x] Patient assessment, examination and intervention [x] Medication orders and management [x] Patient/Family updates as able [x] Care Coordination and Documentation. Diagnoses Lung infiltrate R91.8 Weakness generalized R53.1 Attestations Medical Necessity Statement* Patient seen and examined by myself, we discussed his condition and plan of care. Reviewed and discussed findings and assessment and plan by Dr. Cervantes. This pleasant 79-year-old lady was observed in hospital due to generalized weakness at home, difficulty of her providing adequate care, as well as with finding of new infiltrate on chest x-ray after recent treatment for pneumonia. She was continued on antibiotic while in the hospital, although remained afebrile, without leukocytosis. Saturating well on room air. Echocardiogram was obtained with noted elevation of BNP, with possible acute diastolic decompensated CHF, with finding of grade 2 diastolic dysfunction, normal EF, but also with moderate mitral valve regurgitation as well as moderate aortic valve stenosis, mild TVR. She received a dose of Lasix, albumin, and did well symptomatically, without further signs of fluid overload. Viral studies were obtained for flu, RSV, COVID, which were negative. She is referred for additional assessment by MBS to assess for any possibility of aspiration contributing to pneumonitis/pneumonia. She will complete course with Levaquin every 48 hours with last dose on 09/21. Please reassess recovery after recent pneumonia, UTI, CHF, with valvular heart disease. She is also asked to follow-up with cardiology. Discussed with her the above, as well as she was additionally incidentally found to have a hairline fracture of the right calcaneus. Did not have a fall in the hospital, is not aware of a fall or injury at home. She is asked to further follow-up with podiatry for additional assessment. Cam boot is requested for her, can weight-bear with transfers with cam boot.
--- NOTE | 2024-09-16 13:55 | PC.NURSE ---
Jeffries removed. Cath intact. Pt tolerated well.
--- NOTE | 2024-09-16 14:13 | PC.NURSE ---
Report called to Tracy at [facility].
[2024-09-16 15:37] VITALS: BP 141/58; PULSE 50; RESP 16; TEMP 36.6; O2SAT 93
--- NOTE | 2024-09-16 15:49 | PC.NURSE ---
[facility] picks up pt. Penny wells.
--- NOTE | 2024-09-16 15:49 | PC.NURSE ---
This nurse failed to send pt's home meds with her to [facility]. Penny contacted and advised. Will cotton picker
--- NOTE | 2024-09-16 16:13 | PC.NURSE ---
Melodie CORREA at [facility] called and updated that patient is to take her Levaquin 750 mg every other day for 3 days. The next one will be tomorrow the then the and the last one on the .
== END 2024-09-16 15:50 | disposition skilled nursing facility (03) ==
LOC: ER 09:10 → MEDSURG 11:47
PROVIDERS: Admitting Provider Internal Medicine; Emergency Provider Emergency Medicine; Visit Provider Internal Medicine
DX: R91.8 Other nonspecific abnormal finding of lung field (principal); R53.1 Weakness; I25.10 Atherosclerotic heart disease of native coronary artery without angina pectoris; Z95.5 Presence of coronary angioplasty implant and graft; I69.951 Hemiplegia and hemiparesis following unspecified cerebrovascular disease affecting right dominant side; Z86.718 Personal history of other venous thrombosis and embolism; Z86.711 Personal history of pulmonary embolism; Z95.1 Presence of aortocoronary bypass graft; Z79.82 Long term (current) use of aspirin
CPT/HCPCS: 36415; 71045; 73600; 73650; 80048; 80053; 81001; 82550; 83735; 83880; 84436; 84443; 85025; 85610; 87040; 87086; 87637; 93306; 96365; 96375; 97161; 97167; 97530; 97760; 99285; G0378; J0456; J0696; J1940; J7050; L4361; P9046

== ENCOUNTER → 2024-09-29 15:45 | Outpatient (BNVA) | payer MEDICARE, MEDICAID, SELFPAY | PROVIDERS: Visit Provider Podiatrist Foot & Ankle Surgery | DX: S92.002A Unspecified fracture of left calcaneus, initial encounter for closed fracture (principal); W19.XXXA Unspecified fall, initial encounter | CPT/HCPCS: 73650; 99203 ==

== ENCOUNTER → 2024-09-30 13:15 | Outpatient (BNVA) | payer MEDICARE, MEDICAID, SELFPAY | PROVIDERS: PCP Electrodiagnostic Medicine; Visit Provider Internal Medicine Cardiovascular Disease | DX: Z53.9 Procedure and treatment not carried out, unspecified reason (principal) | CPT/HCPCS: 93229 ==

== ENCOUNTER → 2024-10-08 10:11 | Outpatient (BNVA) | payer MEDICARE, MEDICAID, SELFPAY | PROVIDERS: PCP Electrodiagnostic Medicine; Visit Provider Surgery | DX: Z09 Encounter for follow-up examination after completed treatment for conditions other than malignant neoplasm (principal); Z90.49 Acquired absence of other specified parts of digestive tract | CPT/HCPCS: 99203 ==

== ENCOUNTER → 2024-10-14 14:21 | Outpatient (BNVA) | payer MEDICARE, MEDICAID, SELFPAY | PROVIDERS: PCP Electrodiagnostic Medicine; Visit Provider Podiatrist Foot & Ankle Surgery | DX: S92.002A Unspecified fracture of left calcaneus, initial encounter for closed fracture (principal); X58.XXXA Exposure to other specified factors, initial encounter | CPT/HCPCS: 99213 ==

== ENCOUNTER 2024-11-06 19:41 | Emergency (ER) | payer MEDICARE, MEDICAID, SELFPAY ==
[2024-11-06] VITALS (26 sets, daily range): BP systolic 158–185; BP diastolic 63–89; PULSE 46–59; RESP 4–24; TEMP 36.7; O2SAT 97–100; BMI 29.2
--- NOTE | 2024-11-06 20:17 | CTR_ITS ---
PROCEDURE INFORMATION: Exam: CT Abdomen And Pelvis With Contrast Exam date and time: 11/06/2024 9:12 PM Age: 79 years old Clinical indication: Abnormal findings; Abnormal lab test; Elevated lipase; Prior surgery; Surgery date: 6+ months; Surgery type: Cabg. Gb. Ivc filter; EMS arrival for rectal bleeding. Lipase of 102. ; Additional info: Lower gi bleeding TECHNIQUE: Imaging protocol: Computed tomography of the abdomen and pelvis with contrast. Radiation optimization: All CT scans at this facility use at least one of these dose optimization techniques: automated exposure control; mA and/or kV adjustment per patient size (includes targeted exams where dose is matched to clinical indication); or iterative reconstruction. Contrast material: OMNI 350; Contrast volume: 80 ml; Contrast route: INTRAVENOUS (IV); COMPARISON: CT kidney stone [id number] 09/10/2024 12:31 PM RADIATION DOSE METRICS: Total DLP (mGy-cm): 1414.63 FINDINGS: Coronary arteries: CABG changes. Liver: Normal. No mass. Gallbladder and biliary ducts: Cholecystectomy. Pancreas: Normal. No ductal dilation. Spleen: Normal. No splenomegaly. Adrenal glands: Normal. No mass. Kidneys and ureters: Normal. No hydronephrosis. Stomach and bowel: Unremarkable. No obstruction. No mucosal thickening. Appendix: No evidence of appendicitis. Intraperitoneal space: Unremarkable. No free air. No significant fluid collection. Vasculature: Mesenteric and bilateral renal artery atherosclerotic calcification. Inferior vena cava filter. Lymph nodes: Unremarkable. No enlarged lymph nodes. Urinary bladder: Unremarkable as visualized. Reproductive: Unremarkable as visualized. Bones/joints: Unremarkable. No acute fracture. Soft tissues: Unremarkable. CT/CT abdomen pelvis w con* [id number] IMPRESSION: 1. Negative for acute inflammatory process in the abdomen or pelvis. 2. CABG changes. 3. Cholecystectomy. 4. Mesenteric and bilateral renal artery atherosclerotic calcification. 5. Inferior vena cava filter. COMMENTS: For patients with an IVC filter, recommend assessment for a management plan for the patient's IVC filter. If there is no established management plan, recommend referral to an interventional clinician on a nonemergent basis for evaluation.
--- NOTE | 2024-11-06 20:40 | W.ED.GIBLEED ---
HPI - GI Bleed General: Chief complaint: GI Bleed Stated complaint: BLOODY STOOLS Time Seen by Provider: 11/06/24 20:03 History of Present Illness: 79-year-old female long-term patient presenting with bright red blood per rectum. It was present in her diaper. intermediate stated been going on for 2 weeks. The patient is on Eliquis. No dark tarry stools. No abdominal pain. No vomiting. Related Data Home Medications ?Medication ?Instructions ?Recorded ?Confirmed apixaban 5 mg tablet (Eliquis) 5 mg PO BID 11/28/23 10/14/24 aspirin 81 mg tablet,delayed 81 mg PO DAILY 11/28/23 10/14/24 release folic acid 1 mg tablet 1 mg PO DAILY 11/28/23 10/14/24 isosorbide dinitrate 20 mg tablet 20 mg PO TID 11/28/23 10/14/24 sertraline 50 mg tablet 50 mg PO DAILY 11/28/23 10/14/24 empagliflozin 25 mg tablet 25 mg PO DAILY 09/10/24 10/14/24 (Jardiance) levothyroxine 100 mcg tablet 100 mcg PO DAILY 09/10/24 10/14/24 cyanocobalamin (vitamin B-12) 500 250 mcg PO DAILY 09/15/24 10/14/24 mcg tablet (B-12 DOTS) furosemide 40 mg tablet 20 mg PO DAILY 09/15/24 10/14/24 nitroglycerin 0.4 mg sublingual 0.4 mg sublingual Q5M PRN Chest 09/15/24 10/14/24 tablet Pain pantoprazole 20 mg tablet,delayed 20 mg PO BID 09/15/24 10/14/24 release Previous Rx's ?Medication ?Instructions ?Recorded bisacodyl 5 mg tablet,delayed 10 mg (2 x 5 mg) PO DAILY PRN 09/16/24 release Constipation (see protocol) #30 tabs Allergies Allergy/AdvReac Type Severity Reaction Status Date / Time heparin (porcine) Allergy Unknown Unknown Unverified 10/14/24 14:41 morphine Allergy Unknown Unknown Verified 10/14/24 14:41 oxycodone Allergy Unknown Unknown Unverified 10/14/24 14:41 tramadol Allergy Unknown Unknown Unverified 10/14/24 14:41 heparin Allergy Unknown Verified 02/27/25 14:41 Sulfa (Sulfonamide Allergy Unknown Verified 10/14/24 14:41 Antibiotics) Augmentin Allergy Unknown Unknown Uncoded 10/14/24 14:41 PFSH ED PFSH: Medical History History of CAD (coronary artery disease) Hyperlipidemia History of hypertension Stenosis of right carotid artery History of CVA (cerebrovascular accident) History of pulmonary embolism History of DVT (deep vein thrombosis) History of atrial fibrillation History of type 2 diabetes mellitus Surgical History History of cholecystectomy History of coronary artery bypass graft S/P IVC filter Family History Other CAD (coronary artery disease) Diabetes Hyperlipidemia Hypertension Social History Smoking and tobacco/nicotine status: unknown if used tobacco/nicotine Alcohol intake: never Substance/Drug Use: never Physical Exam Const: COMMON NORMALS: no acute distress GENERAL APPEARANCE: cooperative and frail appearing HENMT: COMMON NORMALS: normocephalic, atraumatic and Normal external nose present HEAD & SCALP: normocephalic and atraumatic FACE & SINUS: normal facial exam and face symmetric NOSE: Normal external nose present Eye: COMMON NORMALS: Equal, round and reactive pupils present and EOMs intact bilaterally PUPIL: Yes Equal, round and reactive pupils present Neck/C-Spine: GENERAL: Yes trachea midline Chest: CHEST: Yes Symmetrical chest wall rise Resp: COMMON NORMALS: normal respiratory effort, No retractions, No use of accessory muscles and clear to auscultation bilaterally AUSCULTATION: clear to auscultation bilaterally Cardio: COMMON NORMALS: regular rate and regular rhythm RATE: regular rate RHYTHM: regular rhythm GI: COMMON NORMALS: Normal to inspection, nondistended, normoactive bowel sounds present PALPATION: No Tenderness to palpation present (GI) and No Guarding due to palpation present (GI) RECTAL EXAM: heme positive stool trace Extremity: COMMON NORMALS: no pedal edema Psych: COMMON NORMALS: speech normal SPEECH: Yes normal speech Skin: COMMON NORMALS: no rashes or lesions noted GENERAL SKIN EXAM: no rashes or lesions noted Course Vital Signs: Vital signs: Vital Signs Temperature 98.1 F 11/06/24 19:50 Pulse Rate 49 L 11/06/24 23:51 Respiratory Rate 17 11/06/24 23:51 Blood Pressure 185/76 11/06/24 23:51 Pulse Oximetry 98 11/06/24 23:51 Oxygen Delivery Me thod Room Air 11/06/24 19:50 MDM - GI Bleed Medical Decision Making Hemoglobin is 9.9 which is above her last. Creatinine is 1.4. Faintly positive guaiac stool sample. CT is negative. She is on anticoagulants. Could be an internal hemorrhoid bleed if she has no pain. Will have her stop anticoagulation for at least 48 hours. If bleeding resolves, they can consult with primary care physician about whether or not to restart the Eliquis. Lab Data 11/06/24 20:27 11/06/24 20:27 Radiology Impressions Abdomen/Pelvis CT 11/06/24 20:17 IMPRESSION: 1. Negative for acute inflammatory process in the abdomen or pelvis. 2. CABG changes. 3. Cholecystectomy. 4. Mesenteric and bilateral renal artery atherosclerotic calcification. 5. Inferior vena cava filter. COMMENTS: For patients with an IVC filter, recommend assessment for a management plan for the patient's IVC filter. If there is no established management plan, recommend referral to an interventional clinician on a nonemergent basis for evaluation. Laboratory Results WBC 8.35 10^3/uL (3.29-11.43) 11/06/24 20: RBC 3.98 10^6/uL (3.85-5.65) 11/06/24 20: Hgb 9.90 g/dL (11.27-16.99) L 11/06/24 20: Hct 34.6 % (36-47) L 11/06/24 20: MCV 86.9 fl (85-98) 11/06/24 20: MCH 24.9 pg (27-33) L 11/06/24 20: MCHC 28.6 g/dL (30-55) L 11/06/24 20: RDW 18.4 % (12.1-15.1) H 11/06/24 20: Plt Count 231 10^3/cmm (157-399) 11/06/24 20: MPV 10.1 fL (7.4-10.4) 11/06/24 20: Neut % (Auto) 55.0 % 11/06/24 20: Lymph % (Auto) 26.3 % 11/06/24 20: [place] % (Auto) 7.4 % 11/06/24 20: Eos % (Auto) 10.5 % 11/06/24 20: Baso % (Auto) 0.4 % 11/06/24: Neut # (Auto) 4.59 10^3/uL (1.8-7.7) 11/06/24 20: Lymph # (Auto) 2.2 10^3/uL (0.8-4.8) 11/06/24: [place] # (Auto) 0.6 10^3/uL (0.2-0.9) 11/06/24 20: Eos # (Auto) 0.9 10^3/uL (0.0-0.8) H 11/06/24: Baso # (Auto) 0.0 10^3/uL (0.0-0.1) 11/06/24: Nucleated RBC % (auto) 0 % 11/06/24 Nucleated RBCs # 0.0 /100WBC 11/06/24: PT 14.60 SECONDS (12.1-14.9) 11/06/24 20: INR 1.06 (0.8-1.2) 11/06/24 20: APTT 34.6 SECONDS (23.9-36.7) 11/06/24 20: Sodium 139 mmol/L (136-145) 11/06/24: Potassium 3.9 mmol/L (3.5-5.1) 11/06/24: Chloride 106 mmol/L (98-107) 11/06/24: Carbon Dioxide 24 mmol/L (22-29) 11/06/24: Anion Gap 12.9 (5-19) 11/06/24 20: BUN 23 mg/dL (8-23) 11/06/24 20: Creatinine 1.4 mg/dL (0.5-0.9) H 11/06/24 20: GFR Calculation Not Reportable 11/06/24: Glucose 138 mg/dL (65-115) H 11/06/24 20: Calculated Osmolality 294 mOsm/kg (285-295) 11/06/24 20: Lactic Acid 0.7 mmol/L (0.5-2.2) 11/06/24 20: Calcium 8.5 mg/dL (8.5-10.5) 11/06/24: Total Bilirubin 0.2 mg/dL (0.15-1.2) 11/06/24: AST 13 U/L (0-32) 11/06/24: ALT 6 U/L (0-33) 11/06/24: Alkaline Phosphatase 74 U/L (35-105) 11/06/24: C-Reactive Protein 3.0 mg/L (0.0-4.9) 11/06/24: Total Protein 6.1 g/dL (6.6-8.7) L 11/06/24: Albumin 3.5 g/dL (3.5-5.2) 11/06/24 20: Globulin 2.6 g/dL (1.3-4.6) 11/06/24: Lipase 102 U/L (13-60) H 11/06/24: Urine Color Yellow (Yellow) 11/06/24 21: Urine Appearance Clear (CLEAR) 11/06/24 21: Urine pH 5.5 (5-7) 11/06/24 21: Ur Specific [place] 1.023 (1.005-1.030) 11/06/24: Urine Protein Trace (Negative) A 11/06/24 21: Urine Glucose (UA) 3+ (Normal) H 11/06/24 21:54 Urine Ketones Negative (Negative) 11/06/24 21: Urine Blood Negative (Negative) 11/06/24 21: Urine Nitrate Negative (Negative) 11/06/24 21: Urine Bilirubin Negative (Negative) 11/06/24 21: Urine Urobilinogen 0.2 mg/dL (Negative) 11/06/24 21:54 Ur Leukocyte Esterase Negative (Negative) 11/06/24 21: Urine RBC 0-2 /hpf (0-2) 11/06/24 21:54 Urine WBC 0-5 /hpf (0-5) 11/06/24 21:54 Ur Squamous Epith Cells 0-5 /hpf (0-5) 11/06/24 21:54 Amorphous Sediment Not Reportable 11/06/24 21:54 Urine Bacteria None seen /hpf (NONE) 11/06/24 21:54 Hyaline Casts 1.65 /lpf 11/06/24 21:54 Blood Type A Positive 11/06/24 20:27 Rho(D) Type Rh positive 11/06/24 20:27 Antibody Screen Negative 11/06/24 20:27 All radiology interpretation(s) finalized by discharge Discharge Plan Discharge Patient Disposition: Home Clinical Impression: Bright red blood per rectum Condition: Stable Prescriptions: No Action isosorbide dinitrate 20 mg tablet 20 mg PO TID sertraline 50 mg tablet 50 mg PO DAILY Eliquis 5 mg tablet 5 mg PO BID aspirin 81 mg Tablet,Delayed Release (Dr/Ec) 81 mg PO DAILY folic acid 1 mg Tablet 1 mg PO DAILY levothyroxine 100 mcg tablet 100 mcg PO DAILY Jardiance 25 mg tablet 25 mg PO DAILY furosemide 40 mg tablet 20 mg PO DAILY pantoprazole 20 mg tablet,delayed release (DR/EC) 20 mg PO BID cyanocobalamin (vitamin B-12) [B-12 DOTS] 500 mcg Tablet 250 mcg PO DAILY nitroglycerin 0.4 mg Tablet, Sublingual 0.4 mg SUBLINGUAL Q5M PRN (Reason: Chest Pain) Rx Instructions: do not exceed 3 doses per episode bisacodyl 5 mg Tablet,Delayed Release (Dr/Ec) 10 mg PO DAILY PRN (Reason: Constipation (see protocol)) Qty: 30 0RF Discharge Orders: Discharge ED (Routine); Ordered 11/06/24 Ordered By: Olaf Rehman Referrals: Jaime Atkinson DO [Primary Care Provider] - Patient Instructions: Rectal Bleeding (ED), Opioid Safety, Pain Management Activity Restrictions/Additional Instructions: Stop Eliquis for the next 48 hours. If bleeding is resolved, you may consult with your doctor about restarting. If bleeding has not resolved, recheck blood count on Friday or Friday. Return for worsening bleeding, fever, pain, other concerning symptoms. Print Language: [place] Coding Level of Care Code ED Substance Abuse Technician for Gris Burton
[2024-11-06 20:44] LABS: Basophils % 0.4 %; Eosinophils # 0.9 10^3/uL (0.0-0.8); Eosinophils % 10.5 %; Hematocrit 34.6 % (36-47); Lymphocytes # 2.2 10^3/uL (0.8-4.8); Lymphocytes % 26.3 %; Mean Corpuscular HGB Conc 28.6 g/dL (30-55); Mean Corpuscular Hemoglobin 24.9 pg (27-33); Mean Corpuscular Volume 86.9 fl (85-98); Mean Platelet Volume 10.1 fL (7.4-10.4); Monocytes # 0.6 10^3/uL (0.2-0.9); Monocytes % 7.4 %; Neutrophils # 4.59 10^3/uL (1.8-7.7); Nucleated Red Blood Cells % 0 %; Platelet Count 231 10^3/cmm (157-399); Red Blood Count 3.98 10^6/uL (3.85-5.65); Red Cell Distribution Width 18.4 % (12.1-15.1); White Blood Count 8.35 10^3/uL (3.29-11.43)
[2024-11-06 20:57] LABS: INR 1.06 (0.8-1.2); Partial Thromboplastin Time 34.6 SECONDS (23.9-36.7)
[2024-11-06 20:58] LABS: Lactic Sepsis W/Reflex 0.7 mmol/L (0.5-2.2)
[2024-11-06 20:59] LABS: Alanine Aminotransferase 6 U/L (0-33); Albumin Level 3.5 g/dL (3.5-5.2); Alkaline Phosphatase 74 U/L (35-105); Anion Gap 12.9 (5-19); Aspartate Amino Transferase 13 U/L (0-32); Blood Urea Nitrogen 23 mg/dL (8-23); Calcium 8.5 mg/dL (8.5-10.5); Carbon Dioxide 24 mmol/L (22-29); Chloride 106 mmol/L (98-107); Creatinine Clr Calc Pharmacy 32.6066; Globulin 2.6 g/dL (1.3-4.6); Glucose 138 mg/dL (65-115); Lipase 102 U/L (13-60); Osmolality Calculated 294 mOsm/kg (285-295); Potassium 3.9 mmol/L (3.5-5.1); Sodium 139 mmol/L (136-145); Total Bilirubin 0.2 mg/dL (0.15-1.2); Total Protein 6.1 g/dL (6.6-8.7)
[2024-11-06] MEDS: iohexol 350 mg/mL 500 mL Btl (per mL) IV (21:15)
[2024-11-06 22:02] LABS: Bilirubin Urine Negative (Negative); Blood Urine Negative (Negative); Glucose Urine UA 3+ (Normal); Ketones Urine Negative (Negative); Leukocyte Esterase Urine Negative (Negative); Nitrate Urine Negative (Negative); Protein Urine Trace (Negative); Specific Gravity, Urine 1.023 (1.005-1.030); Urine Appearance Clear (CLEAR); Urine Color Yellow (Yellow); Urobilinogen Urine 0.2 mg/dL (Negative); pH Urine 5.5 (5-7)
[2024-11-06 22:04] LABS: Add Urine Microscopic? YES; Bacteria Urine None Seen /hpf; Hyaline Casts Urine 1.65 /lpf; RBC Urine 0-2 /hpf (0-2); Squamous Epithelial Cell Urine 0-5 /hpf (0-5); Universal Test for UA Present (0); WBC Urine 0-5 /hpf (0-5)
[2024-11-06 22:13] LABS: Add Urine Culture? No
== END 2024-11-06 23:55 | disposition home or self-care (01) ==
PROVIDERS: Emergency Provider Emergency Medicine; PCP Electrodiagnostic Medicine
DX: K92.1 Melena (principal); Z79.01 Long term (current) use of anticoagulants; Z79.82 Long term (current) use of aspirin; Z86.73 Personal history of transient ischemic attack (TIA), and cerebral infarction without residual deficits; E11.9 Type 2 diabetes mellitus without complications; I25.10 Atherosclerotic heart disease of native coronary artery without angina pectoris; E78.5 Hyperlipidemia, unspecified; I10 Essential (primary) hypertension
CPT/HCPCS: 36415; 74177; 80053; 81001; 83605; 83690; 85025; 85610; 85730; 86140; 86850; 86900; 99285

== ENCOUNTER → 2024-12-07 15:35 | Outpatient (BNVA) | payer MEDICARE, MEDICAID, SELFPAY | PROVIDERS: PCP Electrodiagnostic Medicine; Visit Provider Internal Medicine Cardiovascular Disease | DX: I08.0 Rheumatic disorders of both mitral and aortic valves (principal); I50.20 Unspecified systolic (congestive) heart failure; I48.91 Unspecified atrial fibrillation; Z86.73 Personal history of transient ischemic attack (TIA), and cerebral infarction without residual deficits | CPT/HCPCS: 99204 ==

== ENCOUNTER → 2025-06-06 13:22 | Outpatient (BNVA) | payer MEDICARE, MEDICAID, SELFPAY | PROVIDERS: PCP Electrodiagnostic Medicine; Visit Provider Internal Medicine Cardiovascular Disease | DX: I48.91 Unspecified atrial fibrillation (principal); I25.10 Atherosclerotic heart disease of native coronary artery without angina pectoris; I08.0 Rheumatic disorders of both mitral and aortic valves; Z87.891 Personal history of nicotine dependence; I11.0 Hypertensive heart disease with heart failure; I50.9 Heart failure, unspecified; Z79.01 Long term (current) use of anticoagulants; Z79.82 Long term (current) use of aspirin | CPT/HCPCS: 99214 ==